=== PATIENT | female | born 2000 | race Caucasian/White ===

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

== ENCOUNTER 2022-05-02 15:51 | Emergency (ER) | payer BC, SELFPAY ==
[2022-05-02 15:57] VITALS: BP 111/74; PULSE 103; RESP 20; TEMP 37.1; O2SAT 98
--- NOTE | 2022-05-02 15:58 | ED.GENADULT ---
HPI - General Adult General Chief complaint: Skin/Abscess/Foreign Body Stated complaint: Hemorrhoid Time Seen by Provider: 05/02/22 15:58 Source: patient and RN notes reviewed History of Present Illness HPI narrative: Patient is a 22-year-old female who presents to urgent care with complaints of a possible hemorrhoid. Patient states that she noticed it a couple days ago after a firm bowel movement. Patient is denying any pain or bleeding. Just states that ?she can feel it there?. No other acute complaints. No acute distress noted. Patient aware of the plan of care. Some parts of this dictation were generated by voice recognition software and may contain typographical and/or grammatical inaccuracies. Related Data Home Medications Medication Instructions Recorded Confirmed metformin 500 mg tablet,extended 500 mg PO BID 05/02/22 05/02/22 release 24 hr Allergies Allergy/AdvReac Type Severity Reaction Status Date / Time No Known Allergies Allergy Verified 05/02/22 16:01 Review of Systems Review of Systems: CONSTITUTIONAL: Denies fever, chills, or sweats. EYES: Denies visual changes, redness, or discharge. ENT: Denies rhinorrhea, congestion, sore throat, or otalgia. CARDIOVASCULAR: Denies chest pain, palpitations, or edema. RESPIRATORY: Denies cough or dyspnea. GASTROINTESTINAL: Denies abdominal pain, nausea, vomiting, or diarrhea. Reports a possible hemorrhoid GENITOURINARY: Denies dysuria or hematuria. SKIN: Denies rash or itching. MUSCULOSKELETAL: Denies back pain, joint pain, or myalgia. NEUROLOGIC: Denies headache, numbness, or weakness. All other systems reviewed are negative, except as documented in HPI. PMFSH Comments At the time of my signature, I reviewed and agree with the nursing past medical, surgical, social, and family history. There is no relevant family history pertinent to the patient complaint. Exam Narrative: GENERAL: This is a well-nourished, well-developed patient, in no apparent distress. HEAD: normocephalic, atraumatic. EYES: PERRL. Sclera clear/white. Vision is grossly intact. EARS: External ears normal NOSE: External nose normal with no obvious nasal discharge, nares without redness, no rhinorrhea. THROAT: Mucous membranes moist NECK: Neck supple SKIN: warm, intact with no suspicious lesions or rash, good texture and turgor. RECTAL: Pinpoint erythema/scant edema noted to the anal injury at approximately 6:00, possible fissure without surrounding erythema, bleeding or pain NEURO: awake, alert, and oriented to person, place and time. There were no obvious focal neurologic abnormalities. EXTREMITIES: No clubbing, cyanosis, or edema. Course Course Level of Care: Express Care Visit Vital Signs Vital signs: Vital Signs Temperature 98.7 F 05/02/22 15:57 Pulse Rate 103 H 05/02/22 15:57 Respiratory Rate 20 05/02/22 15:57 Blood Pressure 111/74 05/02/22 15:57 Pulse Oximetry 98 05/02/22 15:57 Oxygen Delivery Room Air 05/02/22 15:57 Temperature 98.7 F 05/02/22 15:57 Pulse Rate 103 H 05/02/22 15:57 Respiratory Rate 20 05/02/22 15:57 Blood Pressure 111/74 05/02/22 15:57 Pulse Oximetry 98 05/02/22 15:57 Oxygen Delivery Room Air 05/02/22 15:57 Reviewed Medical Decision Making MDM Narrative Medical decision making narrative: Advised patient to keep the area clean. Use wipes after bowel movements. Try not to strain with bowel movements. It appears you may have either a slight fissure or a very minimal hemorrhoid to the anal entry. May use preparation H [id number] for discomfort. Use stool softener or MiraLax as needed for constipation. Follow-up with your PCP within 2-5 days or for worsening symptoms or failure to improve. Differential Diagnosis Differential Diagnosis: Internal hemorrhoid, external hemorrhoid, fissure Vital Signs Vital Signs: Vital Signs Temperature 98.7 F 05/02/22 15:57 Pulse Rate 103 H 05/02/22 15:57 Respir
== END 2022-05-02 16:40 | disposition home or self-care (01) ==
PROVIDERS: Emergency Provider Nurse Practitioner Family; PCP Family Medicine
DX: K62.89 Other specified diseases of anus and rectum (principal); E11.9 Type 2 diabetes mellitus without complications
CPT/HCPCS: 99211; G0463

== ENCOUNTER 2022-05-29 09:58 | Emergency (ER) | payer BC, SELFPAY ==
--- NOTE | ~2022-05-29 | XR_ITS ---
Clinical Indication: Cough PA and lateral views of the chest: Comparison: None Findings: The lungs are clear, without evidence of focal consolidation or pleural effusion. Cardiome diastinal silhouette is within normal limits. Bones and soft tissues are unremarkable. Impression: Normal chest. Reviewed, dictated and finalized at location . Impression: Normal chest.
[2022-05-29 10:04] VITALS: BP 103/69; PULSE 91; RESP 16; TEMP 36.8; O2SAT 98
--- NOTE | 2022-05-29 10:39 | ED.GENADULT ---
HPI - General Adult General Chief complaint: Upper Respiratory Infection Stated complaint: Cough/Congestion Source: patient Mode of arrival: ambulatory Limitations: no limitations History of Present Illness HPI narrative: Patient presents for evaluation of sick symptoms for last 4 days. Symptoms include low-grade fever, sore throat, bilateral otalgia, productive cough of yellow sputum, shortness of breath, body aches, nausea, and vomiting. Some other household members have been sick as of late. She had COVID in 2020. She does use an electronic cigarette and smokes marijuana. She has been taking tylenol and ibuprofen for her symptoms. Related Data Home Medications Medication Instructions Recorded Confirmed metformin 500 mg tablet,extended 500 mg PO BID 05/02/22 05/02/22 release 24 hr Allergies Allergy/AdvReac Type Severity Reaction Status Date / Time No Known Allergies Allergy Verified 05/02/22 16:01 Review of Systems Review of Systems: CONSTITUTIONAL: Reports low-grade fever. Denies chills, or sweats. EYES: Denies visual changes, redness, or discharge. ENT: Reports bilateral ear pain and otalgia. CARDIOVASCULAR: Denies chest pain, palpitations, or edema. RESPIRATORY: Reports productive cough of yellow sputum no shortness of breath. GASTROINTESTINAL: Reports nausea and vomiting. Denies diarrhea. GENITOURINARY: Denies dysuria or hematuria. SKIN: Denies rash or itching. MUSCULOSKELETAL: Reports generalized body aches. NEUROLOGIC: Denies headache, numbness, dizziness, or weakness. PSYCHIATRIC: Denies anxiety or depression. [facility] Past Medical History Medical History No pertinent past medical history Surgical History Surgical History History of tonsillectomy Family History Family History Mother Family history non-contributory Social History Social History Smoking status: Current every day smoker Tobacco type: e-cigarettes/vaping Substance use: current Substance use type: marijuana Living arrangements: with roommate(s) Gender identity (if verbalized by the patient): Female Spiritual care concerns: No Exam Narrative: GENERAL: Well-appearing, well-nourished, and in no acute distress. HEAD: Normocephalic, atraumatic. EYES: PERRLA and EOMI. ENT: Nares clear, no rhinorrhea or epistaxis. Mucous membranes moist. There is posterior pharyngeal erythema without exudate. Uvula is midline. Bilateral TMs pearly dyson nonbulging NECK: Supple. No adenopathy or masses. No carotid bruits or JVD CHEST: Cough present on exam. Clear to auscultation. No respiratory distress. No wheezes rales or rhonchi HEART: Regular rate and rhythm. No murmur heard. Normal peripheral pulses. ABDOMEN: Soft, nontender, nondistended, normal active bowel sounds. EXTREMITIES: Normal range of motion. No edema. SKIN: Warm, dry, no rash. NEURO: No focal deficits. Alert and oriented x3. PSYCH: Normal mood and affect. Course Course Emergency Course: THIS IS A 22-YEAR-OLD FEMALE WHO PRESENTED FOR EVALUATION OF SICK SYMPTOMS. COVID, INFLUENZA, STREP WERE ALL NEGATIVE. CHEST X-RAY NEGATIVE. EXAM IS CONSISTENT WITH VIRAL URI. ADVISED ON SUPPORTIVE MEASURES. [id number] AGENTS FOR SYMPTOM MANAGEMENT. INCREASE HYDRATION. FOLLOW UP WITH PRIMARY PROVIDER. GO TO THE ER FOR WORSENING SYMPTOMS. PATIENT IN AGREEMENT WITH PLAN OF CARE Level of Care: Express Care Visit Vital Signs Vital signs: Vital Signs Temperature 36.8 C 05/29/22 10:04 Pulse Rate 91 05/29/22 10:04 Respiratory Rate 16 05/29/22 10:04 Blood Pressure 103/69 05/29/22 10:04 Pulse Oximetry 98 05/29/22 10:04 Oxygen Delivery Room Air 05/29/22 10:04 Temperature 36.8 C 05/29/22 10:04 Pulse
== END 2022-05-29 11:29 | disposition home or self-care (01) ==
PROVIDERS: Emergency Provider Nurse Practitioner
DX: J06.9 Acute upper respiratory infection, unspecified (principal); Z20.822 Contact with and (suspected) exposure to COVID-19; F17.290 Nicotine dependence, other tobacco product, uncomplicated; F12.90 Cannabis use, unspecified, uncomplicated; Z86.16 Personal history of COVID-19
CPT/HCPCS: 71046; 87081; 87426; 87804; 87880; 99213; C9803; G0463

== ENCOUNTER 2022-06-02 13:17 | Emergency (ER) | payer BC, SELFPAY ==
[2022-06-02 13:26] VITALS: BP 110/71; PULSE 82; RESP 16; TEMP 36.8; O2SAT 99
--- NOTE | 2022-06-02 14:41 | ED.URI ---
HPI - URI/Sore Throat General Chief Complaint: Upper Respiratory Infection Stated Complaint: Left Ear Pain Time Seen by Provider: 06/02/22 14:41 Source: patient, RN notes reviewed and old records reviewed Mode of arrival: ambulatory Limitations: no limitations History of Present Illness HPI Narrative: 22-year-old female who presents to [facility] with complaints of cold symptoms starting about 1 week ago and this morning she developed left ear pain. Patient reports that she carty been taking Mucinex and also she has taken some Ibuprofen for her symptoms.Patient reports no fevers, chills or sweats or any body aches. MD elicited complaint: other (ear pain) Pertinent past history: other (tonsillectomy) Onset (ago): week(s) (1 week cold symptoms this am ear pain left ear) Pain scale (0-10): 9 Treatments prior to arrival: ibuprofen and other (Mucinex DM) Related Data Allergies Allergy/AdvReac Type Severity Reaction Status Date / Time No Known Allergies Allergy Verified 05/02/22 16:01 Review of Systems Review of Systems: CONSTITUTIONAL:Reports malaise, no chills, sweats, or fever. EYES: Denies visual changes, redness, or discharge. ENT: Reports rhinorrhea, congestion, sinus pain,left otalgia denies sore throat. CARDIOVASCULAR: Denies chest pain, palpitations, or edema. RESPIRATORY: Reports cough.? Denies dyspnea. GASTROINTESTINAL: Denies abdominal pain, nausea, vomiting, diarrhea SKIN: Denies rash or itching. MUSCULOSKELETAL: Denies myalgia. NEUROLOGIC: Denies headache. All systems reviewed & are unremarkable except as noted in HPI and below PMFSH Past Medical History Medical History (Updated 06/04/22 @ 14:42 by Melissa Pelayo NP) Anxiety Diabetes Surgical History Surgical History History of tonsillectomy Family History Family History Mother Family history non-contributory Social History Social History Smoking status: Current every day smoker Tobacco type: e-cigarettes/vaping Substance use: current Substance use type: marijuana Living arrangements: with roommate(s) Gender identity (if verbalized by the patient): Female Spiritual care concerns: No Comments At time of signature, agree with nursing past medical, surgical, social and family history. There is no relevant family history pertinent to the presenting complaint Exam Narrative: GENERAL: Well-appearing, well-nourished, and in no acute distress. HEAD: Normocephalic EYES: PERRLA, conjunctivae clear ENT: Nares clear, turbinates edematous and erythematous, clear discharge. Mucous membranes moist.Left TM red and bulging, right TM pearly dyson with dull light reflex; no tragal tenderness. Oropharynx erythematous without lesions. Tonsils not present and throat without exudate, no drooling, no hoarseness, no trismus, uvula midline.Post nasal drainage NECK: Supple. No lymphadenopathy CHEST: Clear to auscultation, breath sounds equal. No wheezing, rhonchi, rales, or stridor. No respiratory distress, speaks in full sentences.cough noted SAO2 99% on room air HEART: Regular rate and rhythm. No murmur heard. SKIN: Warm, dry, no rash. NEURO: Alert and oriented x3. PSYCH: Normal mood and affect Course Course Emergency Course: Patient is aware of diagnosis, understands and agrees to treatment plan.? Anticipatory guidance given.? Patient agrees to follow-up as directed and is aware of reasons to seek care at the emergency department. Portions of this record may have been created with voice recognition software Level of Care: Express Care Visit Vital Signs Vital signs: Vital Signs Temperature 36.8 C 06/02/22 13:26 Pulse Rate 82 06/02/22 13:26 Respiratory Rate 16 06/02/22 13:26 Blood Pressure 110/71 06/02/22 13:26 Pulse Oximetry
== END 2022-06-02 14:55 | disposition home or self-care (01) ==
PROVIDERS: Emergency Provider Registered Nurse
DX: H66.92 Otitis media, unspecified, left ear (principal); E11.9 Type 2 diabetes mellitus without complications; F41.9 Anxiety disorder, unspecified; F17.290 Nicotine dependence, other tobacco product, uncomplicated
CPT/HCPCS: 99213; G0463

== ENCOUNTER 2022-11-03 14:13 | Emergency (ER) | payer BC, SELFPAY ==
--- NOTE | ~2022-11-03 | XR_ITS ---
EXAMINATION: XR knee LT min 4V DATE: 11/03/2022 15:02 INDICATION: Left knee pain TECHNIQUE: Four views of the left knee were obtained. COMPARISON: None. FINDINGS: Alignment is normal. No fracture or osteochondral lesion. Joint spaces are normal with no e rosions. There is a small knee joint effusion. There is anterior and lateral soft tissue swelling of the knee. IMPRESSION: 1. Knee soft tissue swelling and small knee joint effusion without acute osseous abnormality. Reviewed, dictated and finalized at location F. IMPRESSION: 1. Knee soft tissue swelling and small knee joint effusion without acute osseou s abnormality.
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
[2022-11-03 14:21] VITALS: BP 131/70; PULSE 93; RESP 18; TEMP 36.6; O2SAT 100
== END 2022-11-03 15:35 | disposition home or self-care (01) ==
PROVIDERS: Emergency Provider Nurse Practitioner Family
DX: S60.512A Abrasion of left hand, initial encounter (principal); S60.511A Abrasion of right hand, initial encounter; S80.212A Abrasion, left knee, initial encounter; S80.211A Abrasion, right knee, initial encounter; V48.7XXA Person on outside of car injured in noncollision transport accident in traffic accident, initial encounter; M25.462 Effusion, left knee; E11.9 Type 2 diabetes mellitus without complications; F17.290 Nicotine dependence, other tobacco product, uncomplicated; F12.90 Cannabis use, unspecified, uncomplicated
CPT/HCPCS: 73564; 99213; G0463

== ENCOUNTER 2022-12-23 18:05 | Emergency (ER) | payer BC, SELFPAY ==
[2022-12-23 18:16] VITALS: BP 93/59; PULSE 107; RESP 16; TEMP 36.8; O2SAT 97
--- NOTE | 2022-12-23 18:27 | ECG_ITS ---
Measurements Intervals [place] Rate: 55 P: 59 OR: 128 QRS: 68 QRSD: 103 T: 47 QT: 405 QTc: 387 Interpretive Statements SINUS RHYTHM NONSPECIFIC T-WAVE ABNORMALITY INCOMPLETE RIGHT BUNDLE BRANCH BLOCK ABNORMAL ECG NO PREVIOUS ECG AVAILABLE FOR COMPARISON Electronically Signed On 12-24-2022 9:28:05 CDT by Anthony Tan M.D.
[2022-12-23 18:37] LABS: Glucose Point of Care 172 mg/dl (65-105)
[2022-12-23] MEDS: diphenhydrAMINE HCl CAP 25 MG CAPSULE PO (19:09)
[2022-12-23] MEDS: IBUPROFEN 600 MG TABLET PO (19:09)
--- NOTE | 2022-12-23 19:27 | ED.GENADULT ---
HPI - General Adult General Chief complaint: Headache Stated complaint: headache/fuzzy vision Source: patient Mode of arrival: ambulatory Limitations: no limitations History of Present Illness HPI narrative: Patient presents for evaluation of headache. Symptom onset 0655 this morning. She woke from sleep with her symptoms. She states pain was in the bilateral temporal regions with radiation to the occiput. She rates her pain 7/10 severity. She indicates she felt a fluttering of her heart and attempted to drink water to assist with her symptoms. She states her vision went black for about two minutes. Shortly thereafter she was driving to work and had some loss of peripheral vision bilaterally. She pulled over and contacted a friend who came to get her. She called off from work. She took a nap and woke up this afternoon, still with a headache. She has a history of headaches but this feels different. She reports high stress level related to family issues and finances. She denies any chest pain, shortness of breath, nausea, vomiting, lateralizing deficits. She took tylenol for her headache. She feels that she has a tremor at the present time. She has a hx of DM and is usually on metformin but has been off for some time as she does not have a primary provider. Related Data Allergies Allergy/AdvReac Type Severity Reaction Status Date / Time No Known Allergies Allergy Verified 12/23/22 18:24 Review of Systems Review of Systems: CONSTITUTIONAL: Denies fever, chills, or sweats. EYES: Reports visual changes earlier with some residual fuzzy changes ENT: Denies rhinorrhea, congestion, sore throat, or otalgia. CARDIOVASCULAR: Reports racing heart rate earlier, now resolved. Denies chest pain, palpitations, or edema. RESPIRATORY: Denies cough or dyspnea. GASTROINTESTINAL: Denies abdominal pain, nausea, vomiting, or diarrhea. GENITOURINARY: Denies dysuria or hematuria. SKIN: Denies rash or itching. MUSCULOSKELETAL: Denies back pain, joint pain, or myalgia. NEUROLOGIC: Reports tremor and headache. Denies headache, numbness, dizziness, or weakness. PSYCHIATRIC: Reports anxiety. Denies depression. [facility] Past Medical History Medical History Anxiety Diabetes Surgical History Surgical History History of tonsillectomy Family History Family History Mother Family history non-contributory Social History Social History Smoking status: Current every day smoker Tobacco type: e-cigarettes/vaping Substance use: current Substance use type: marijuana Living arrangements: with roommate(s) Gender identity (if verbalized by the patient): Female Spiritual care concerns: No Exam Narrative: GENERAL: Well-appearing, well-nourished, and in no acute distress. HEAD: Normocephalic, atraumatic. EYES: PERRLA and EOMI. ENT: Nares clear, no rhinorrhea or epistaxis. Mucous membranes moist. Oropharynx without tonsillar hypertrophy exudate or other lesions. Bilateral TMs pearly dyson nonbulging NECK: Supple. No adenopathy or masses. No carotid bruits or JVD CHEST: Clear to auscultation. No respiratory distress. No wheezes rales or rhonchi HEART: Regular rate and rhythm. No murmur heard. Normal peripheral pulses. ABDOMEN: Soft, nontender, nondistended, normal active bowel sounds. EXTREMITIES: Normal range of motion. No edema. SKIN: Warm, dry, no rash. NEURO: No focal deficits. Alert and oriented x3. Normal [id number] exam. Able to perform rapid alternating ear movements without difficulty. Comprehensive neurological exam intact. PSYCH: Normal mood and affect. Course Course Emergency Course: This is a 22-year-old female who presented for evaluation of headaches. She wa
== END 2022-12-23 19:59 | disposition home or self-care (01) ==
PROVIDERS: Emergency Provider Nurse Practitioner
DX: R51.9 Headache, unspecified (principal); F43.9 Reaction to severe stress, unspecified; E11.9 Type 2 diabetes mellitus without complications; F17.219 Nicotine dependence, cigarettes, with unspecified nicotine-induced disorders
CPT/HCPCS: 82948; 93005; 99213; A9270; G0463

== ENCOUNTER 2023-02-09 17:45 | Emergency (ER) | payer BC, SELFPAY ==
[2023-02-09 17:51] VITALS: BP 93/69; PULSE 75; RESP 18; TEMP 37; O2SAT 98
[2023-02-09 17:58] VITALS: BP 93/69; PULSE 75; RESP 18; TEMP 37; O2SAT 98
--- NOTE | 2023-02-09 18:08 | ED.URI ---
HPI - URI/Sore Throat General Chief Complaint: Upper Respiratory Infection Stated Complaint: Headache/Vomiting Source: patient and RN notes reviewed History of Present Illness HPI Narrative: 22 yo F presents to urgent care with complaints of an intermittent OG and sore throat x 4-5 days. Pt states her OG will change in location depending on the day and minute. Pt states she had a 101 F fever early this morning. Pt reports vomiting 4x within the last 24 hours. Denies any ear pain, chest pain, SOB, photophobia, abdominal pain, or diarrhea. Pt has taken OTC analgesics and soaked her feet in hot water without relief. Pt looking at her phone in exam room and in NAD. Related Data Allergies Allergy/AdvReac Type Severity Reaction Status Date / Time No Known Allergies Allergy Verified 02/09/23 17:58 Review of Systems Review of Systems: Pertinent positives and pertinent negatives per HPI. [facility] Past Medical History Medical History Anxiety Diabetes Surgical History Surgical History History of tonsillectomy Family History Family History Mother Family history non-contributory Social History Social History Smoking status: Current every day smoker Tobacco type: e-cigarettes/vaping Substance use: current Substance use type: marijuana Living arrangements: with roommate(s) Gender identity (if verbalized by the patient): Female Spiritual care concerns: No Comments At the time of my signature, I reviewed and agree with the nursing past medical, surgical, social, and family history. There is no relevant family history pertinent to the patient complaint. Exam Narrative: GENERAL: This is a well-nourished, well-developed patient, in no apparent distress. HEAD: normocephalic, atraumatic. EYES: Sclera clear/white. Vision is grossly intact. EARS: External ears normal, auditory canals clear and without drainage, TMs normal without perforation. Hearing grossly intact. NOSE: External nose normal with no obvious nasal discharge, nares without redness, no rhinorrhea. THROAT: Mucous membranes moist, posterior pharynx clear. NECK: Neck supple, non-tender without lymphadenopathy, masses or thyromegaly. CARDIOVASCULAR: Regular rate and rhythm without murmurs, gallops, or rubs. RESPIRATORY: Clear to auscultation. Breath sounds equal bilaterally. No wheezes, rales, or rhonchi. GASTROINTESTINAL: Abdomen soft, non-tender, nondistended. Bowel sounds are active. No hepato-splenomegaly, or palpable masses. No guarding. SKIN: warm, intact with no suspicious lesions or rash, good texture and turgor. NEURO: awake, alert, and oriented to person, place and time. There were no obvious focal neurologic abnormalities. EXTREMITIES: No clubbing, cyanosis, or edema. No joint tenderness, effusion, or edema noted. BACK: Nontender without deformity or crepitus. No flank tenderness. Course Course Level of Care: Express Care Visit Vital Signs Vital signs: Vital Signs Temperature 98.6 F 02/09/23 17:51 Pulse Rate 75 02/09/23 17:51 Respiratory Rate 18 02/09/23 17:51 Blood Pressure 93/69 L 02/09/23 17:51 Pulse Oximetry 98 02/09/23 17:51 Oxygen Delivery Room Air 02/09/23 17:51 Temperature 98.6 F 02/09/23 17:58 Pulse Rate 75 02/09/23 17:58 Respiratory Rate 18 02/09/23 17:58 Blood Pressure 93/69 L 02/09/23 17:58 Pulse Oximetry 98 02/09/23 17:58 Oxygen Delivery Room Air 02/09/23 17:58 Reviewed MDM - URI/Sore Throat Differential Diagnosis Differential diagnosis: Likely upper respiratory infection, otitis media, viral infection, pharyngitis and other (dehydration, migraine, AOM) Lab Data Labs: Strep Screen Presumptive Negative
== END 2023-02-09 18:36 | disposition home or self-care (01) ==
PROVIDERS: Emergency Provider Nurse Practitioner Family
DX: B34.9 Viral infection, unspecified (principal); E11.9 Type 2 diabetes mellitus without complications; F17.210 Nicotine dependence, cigarettes, uncomplicated
CPT/HCPCS: 87081; 87880; 99213; G0463

== ENCOUNTER 2024-07-26 11:17 | Emergency (ER) | payer BC, SELFPAY ==
--- OUTSIDE RECORDS SUMMARY | 2024-07-26 11:22 | XMS_ITS | Clinical Summary ---
Author Organization [facility] Address [address] [place] [address] Phone Care Team Providers Care Pot Feeder Name Role Phone Lise Blackwell SHIRT OPERATOR, COST MANAGER Primary Care Provider + Jimi Pitt MD Unavailable Allergies No known active allergies Medications Etonogestrel-Eth inyl Estradiol 0.12-0.015 MG/24HR RING 3 Active diphenhydrAMINE HCl (BENADRYL ALLERGY PO) Take by mouth. Active ondansetron (ZOFRAN-ODT) 4 MG TABLET DISPERSIBLE Take 1 Tablet by mouth every 8 hours as needed for Nausea - 1st line. 10 Tablet 4 Active polyethylene glycol (GLYCOLAX, MIRALAX) 17 g Pack Take 1 Packet by mouth daily. Dissolve in 4-8 oz of liquid. 90 Packet 4 Active ondansetron (ZOFRAN) 4 MG TabletIndication s:Nausea and vomiting, unspecified vomiting type Take 1 Tablet by mouth every 8 hours as needed for Nausea - 2nd line. 15 Tablet 5 Active metFORMIN (GLUCOPHAGE) 500 MG TabletIndication s:Diabetes 1.5, managed as type 2 (HCC) Take 1 Tablet by mouth 2 times daily. 180 Tablet 5 Active tamsulosin (FLOMAX) 0.4 MG Capsule TAKE 1 CAPSULE BY MOUTH DAILY 7 Capsule 5 Active Active Problems No known active problems Encounters Date Type Department Care Team Description 07/22/2024 10:58 AM CDT - 07/22/2024 1:09 PM CDT [facility] Emergency [address] [place] [address] Charlene Clark APRN, COST MANAGER Upper respiratory tract infection, unspecified type Discharge Disposition: Discharged to home or Selfcare 07/22/2024 Travel 07/22/2024 [facility] [address] [place] [address] Lise Blackwell, SHIRT OPERATOR, COST MANAGER Advice Only; Headache; Sore Throat; Fever 07/02/2024 12:26 PM CDT [facility] Per[facility] [address] [place] [address] Adelso Eden APRN, FINANCIAL OPERATIONS CONSULTANT 07/02/2024 12:10 PM CDT - 07/02/2024 1:40 PM CDT [facility] Per[facility] [address] [place] [address] Jimi Pitt MD RIGHT RENAL EXTRACORPOREAL SHOCKWAVE LITHOTRIPSY 07/02/2024 10:07 AM CDT - 07/02/2024 2:56 PM CDT [facility] Preop[facility]Pac[facility] [address] [place] [address] Jimi Pitt MD Discharge Disposition: Discharged to home or Selfcare 07/02/2024 Travel 06/24/2024 Travel 06/23/[address] [facility] [address] [place] [address] Jimi Pitt MD 06/23/[address] [facility] [address] [place] [address] Jimi Pitt MD 06/22/2024 Results Follow-Up [facility] - Family Medicine [facility] [address] [place] [address] Lise Blackwell APRN, COST MANAGER CMP (COMPREHENSIVE METABOLIC PANEL), HEMOGLOBIN A1C W/ ESTIMATED GLUCOSE, CBC WITH AUTO DIFFERENTIAL, THYROID SCREEN WITH REFLEX 06/18/2024 12:21 PM CDT - 06/18/2024 11:59 PM CDT [facility] Diagnostic Radiology [address] [place] [address] Jimi Pitt MD Discharge Disposition: Discharged to home or Selfcare 06/18/2024 11:15 AM CDT Office Visit [facility] [address] [place] [address] Jimi Pitt MD Kidney stone (Primary Dx) Discharge Disposition: Discharged to home or Selfcare 06/18/2024 Travel 06/12/2024 Refill [facility] [address] [place] [address] Taco Cox MD Medication Refill 05/25/2024 9:00 AM CDT Office Visit [facility] [address] [place] [address] Lise Blackwell APRN, JAMES Diabetes 1.5, managed as type 2 (HCC) (Primary Dx); Nephrolithiasis Discharge Disposition: Discharged to home or Selfcare 05/25/2024 Travel 05/05/2024 Results Follow-Up [facility] [address]2 [facility] [place] [address] Lise Blackwell, MARIA G, COST MANAGER HEMOGLOBIN A1C W/ ESTIMATED GLUCOSE, CMP (COMPREHENSIVE METABOLIC PANEL), LIPID PANEL, Additional followed-up results: 2 05/04/2024 9:48 AM STONEWORKING BELT SANDER - 05/04/2024 11:59 PM STONEWORKING BELT SANDER [facility] CT [address] [place] [address] Oscar Herrera APRN, COST MANAGER Discharge Disposition: Discharged to home or Selfcare 05/04/2024 9:15 AM STONEWORKING BELT SANDER Office Visit [facility] [address] [place] [address] Oscar Herrera APRN, CNP Nephrolithiasis (Primary Dx) Discharge Disposition: Discharged to home or Selfcare 05/04/2024 Results Follow-Up [facility] [address] [place] [address] Oscar Herrera APRN, CNP CT RENAL STONE STUDY (ABDOMEN AND PELVIS W/O CONTRAST) 05/04/2024 Travel 05/03/2024 Nurse Triage [facility] [address] [place] [phone] Lise Blackwell APRN, CNP Abdominal Pain; Kidney Stone 04/28/2024 Results Follow-Up [facility] [address] [place] [address] ABDOMEN PELVIS W/ CONTRAST from Last 3 Months Immunizations Immunization Administration Dates Next Due [id number] kath MCV4, Unspecif ied Formulation 10/31/2007 DTAP VACCINE 06/21/2003, 3,2002,05/29 DTAP/HEPB/IPV Vaccine 10/31/2007 HEP B/HIB Combined Vaccine 03/24/2003,2002 ,2002 Hepatitis A Vaccine, Pediatric/adolescent, 2 Dose Schedule 11/19/2012 Hepatitis A Vaccine,unspecif ied Formulation 12/29/2007,10/31/2007 Hepatitis A, Pediatric, Unsp ecified Formulation 10/31/2007 Hepatitis B Vaccine,unspecif ied Formulation 10/31/2007,03/24/2003,2002,05/29 Human Papillomavirus (HPV) 9 -valent Vaccine 12/14/2015 Human Papillomavirus Vaccine (HPV), quadrivalent 04/22/2015 Inactivated Polio Vaccine 03/24/2003,2002, 2002 Influenza Vaccine 01/29/2011 Influenza Vaccine Quadrivalent Nasal 01/04/2014, 01/09/2013 Influenza Vaccine greater than 3 yrs 11/25/2023 Influenza Vaccine, Quadrivalent, PF 03/22/2023,0 04/26/2017,12/14/2015 Influenza Vaccine,unspecifie d Formulation 01/01/2003 Influenza, Injectable, Mdck, Preservative Free 03/26/2024 Influenza,Split Virus,Trivalent,Injectable,PF 11/25/2023 MMR Vaccine 11/19/2012,06/21/2003 Meningococcal B, Recombinant 09/10/2019 Meningococcal Vaccine 09/10/2019,05/25/2014,0 07/2003 Pneumococcal Vaccine Peds - 7 Valent ,2002,2002,05/29 TDAP Vaccine 05/25/2014 Varicella Vaccine Live 04/26/2017,10/31/2007,09/2003 Family History Medical History Relation Name Comments Autism Brother Alcohol Abuse Father Drug Abuse Father Alcohol Abuse Maternal Grandfather Heart Attack Maternal Grandfather Heart Surgery Maternal Grandfather Colon Cancer Maternal Grandmother Lung Cancer Maternal Grandmother Other-comment Maternal Grandmother Brain tumor ADD / ADHD Mother Anxiety disorder Mother Bipolar Disorder Mother Depression Mother Chronic Obstructive Pulmonary Disease Paternal Grandmo ther Anxiety disorder Sister Bipolar Disorder Sister Depression Sister Relation Name Status Comments Brother Alive Father Maternal Grandfather Alive Maternal Grandmother Mother Paternal Grandmother Alive Sister Alive Social History Tobacco Use Types Packs/Day Years Used Date Smoking Tobacco: Never Smokeless Tobacco: Never Tobacco Cessation:Counseling Given: Not Answered Alcohol Use Standard Drinks/Week Comments Yes 0 (1 standard drink = 0.6 oz pur e alcohol) Rare [facility] Utilities Answer Date Recorded In the past 12 months has [employer], gas, oil, or water [employer] threatened to shut off services in your home? No 10/02/2023 Social Connection and Isolation Panel [NHANES] A nswer Date Recorded In a typical week, how many times do you talk on the phone with family, friends, or neighbors? Twice a week 10/02/2023 How often do you get together with friends or re latives? Once a week 10/02/2023 How often do you attend jehovah's witness or restorationist serv ices? Never 10/02/2023 Do you belong to any clubs o r organizations such as jehovah's witness groups, unions, fraternal or athletic groups, or school groups? No 10/02/2023 How often do you attend meet ings of the clubs or organizations you belong to? Never 10/02/2023 Are you , , di vorced, , never , or living with a partner? Never 10/02/2023 AUDIT-C Answer Date Recorded Q1: How often do you have a drink containing alc ohol? 2-4 times a month 10/02/2023 Q2: How many drinks containi ng alcohol do you have on a typical day when you are drinking? 3 or 4 10/02/2023 Q3: How often do you have si x or more drinks on one occasion? Never 10/02/2023 Overall Financial Resource Strain (CARDIA) Answe r Date Recorded How hard is it for you to pa y for the very basics like food, housing, medical care, and heating? Somewhat hard 10/02/2023 PHQ-2 Answer Date Recorded Total Score - Questions 1-9 0 02/0 08/2024 [facility] - Occupational Stress Questionnaire Answer Date Recorded Do you feel stress - tense, restless, nervous, or anxious, or unable to sleep at night because your mind is troubled all the time - these days? To some extent 10/02/2023 Exercise Vital Sign Answer Date Recorde d On average, how many days pe r week do you engage in moderate to strenuous exercise (like a brisk walk)? 4 days 10/02/2023 On average, how many minutes do you engage in exercise at this level? 60 min 10/02/2023 Hunger Vital Sign Answer Date Recorded Within the past 12 months, y ou worried that your food would run out before you got the money to buy more. Never true 10/02/19 24 Within the past 12 months, t he food you bought just didn't last and you didn't have money to get more. Never true 10/02/2023 PRAPARE - Transportation Answer Date Re corded In the past 12 months, has l ack of transportation kept you from medical appointments or from getting medications? No 09/15 In the past 12 months, has l ack of transportation kept you from meetings, work, or from getting things needed for daily living? No 10/02/2023 Housing Stability Vital Sign Answer Ulices e Recorded In the last 12 months, was t here a time when you were not able to pay the mortgage or rent on time? No 10/02/2023 In the past 12 months, how m any times have you moved where you were living? 0 10/02/2023 At any time in the past 12 m [facility], were you homeless or living in a correction (including now)? No 10/02/2023 Sexually Active Control Partners Comments Yes Male Condom, Inserts Female NUVA RI NG Comments No Sex and Gender Information Value Date Recorded Sex Assigned at Female 10/31/2023 5:22 PM CDT Legal Sex Female 1:28 PM CDT Gender Identity Female 10/31/2023 5:22 PM CDT Sexual Orientation Straight 12/23/2023 7: 01 PM CDT Last Filed Vital Signs Vital Sign Reading Time Taken Comments Blood Pressure 107/63 07/22/2024 1:07 PM CDT Pulse 91 07/22/2024 1:07 PM CDT Temperature 37.2 C (99 F) 07/22/2024 10:56 AM CDT Respiratory Rate 18 07/22/2024 1:07 PM CDT Oxygen Saturation 99% 07/22/2024 1:07 PM CDT Inhaled Oxygen Concentration - - Weight 57.9 kg (127 lb 10.3 oz) 025 10:56 AM CDT Height 152.4 cm (5') 07/22/2024 10:56 AM CDT Body Mass Index 24.93 07/22/2024 10:56 AM CDT Plan of Treatment Upcoming Encounters Date Type Department Care Team (Late st Contact Info) Description 08/06/2024 9:45 AM CDT Office Visit [facility] [address] [place] [address] Jimi Pitt MD [address], [address] [address] 11/25/2024 8:30 AM CDT Office Visit [facility] - [place] [address] [place] [address] Lise Blackwell, SHIRT OPERATOR, COST MANAGER [address] [place] [address] Health Maintenance Due Date Last Done Comments Meningococcal B Immunization (2 of 2 - Trumenba SCDM 2-dose series) 03/11/2020 09/10/2019 Pneumococcal Immunization Combined (1 of 2 - PCV) 2021 10/31/2007, 2002, 2002, Additional history exists Pap Smear 2023 SARS-COV-2 Immunization (1 - season) 2023 DTaP/Tdap/Td Immunization (7 - Td or Tdap) 05/25/2024 05/25/2014, 10/31/2007, 06/21/2003, Additional history exists Respiratory Syncytial Virus (RSV) Immunization (Adult) (1 - 1-dose 75+ series) 2077 Hepatitis B Immunization Completed 008, 10/31/2007, 03/24/2003, Additional history exists Human Papillomavirus (HPV) Immunization Completed 12/14/2015, 04/22/2015 Meningococcal Immunization (ACWY) Completed 09/10/2019, 05/25/2014, 10/31/2007, Additional history exists Hepatitis C Virus (HCV) Screening Completed 07/22/2023 Influenza Immunization Completed , 11/25/2023, 11/25/2023, Additional history exists Diabetes: Lipid Screening Discontinued 04/23/2024, 12/2023 Diabetes: Hemoglobin A1c Discontinued 025, 04/23/2024, 07/22/2023, Additional history exists Diabetes: Nephropathy Screening Discontinued 06/18/2024, 04/23/2024, 01/15/2024, Additional history exists Diabetes: Thyroid Stimulating Hormone (TSH) Screening Discontinued 06/18/2024, 06/18/2024, 04/23/2024, Additional history exists Rotavirus Immunization Aged Out No lo nger eligible based on patient's age to complete this topic Procedures Procedure Name Priority Date/Time Associated Diagnosis Comments GROUP A STREP BY PCR STAT 07/22/2024 11:10 AM CDT RSV,SARS-COV-2,INF LUENZA A&B BY PCR STAT 07/22/2024 11:10 AM CDT POCT GLUCOSE Routine 07/02/2024 1:21 PM CDT LMA Routine 07/02/2024 12:58 PM CDT FRAGMENT KIDNEY STONE/ ESWL 07/02/2024 12:06 PM CDT RIGHT KIDNEY STONE Special Needs 5' 122LBS, DM, NEEDS PREG TEST IN DS, KUB IN DS XR ABDOMEN KUB FLAT PLATE STAT 07/02/2024 11:02 AM CDT POCT GLUCOSE Routine 07/02/2024 10:46 AM CDT POCT URINE HCG () Routine 07/02/2024 10:21 AM CDT XR ABDOMEN KUB FLAT PLATE Routine 06/18/2024 12:41 PM CDT Kidney stone THYROID SCREEN WITH REFLEX Routine 06/18/2024 11:50 AM CDT Diabetes 1.5, managed as type 2 (HCC) CBC WITH AUTO DIFFERENTIAL Routine 06/18/2024 11:50 AM CDT Diabetes 1.5, managed as type 2 (HCC) THYROID SCREEN WITH REFLEX Routine 06/18/2024 11:50 AM CDT Diabetes 1.5, managed as type 2 (HCC) HEMOGLOBIN A1C W/ ESTIMATED GLUCOSE Routine 06/18/2024 11:50 AM CDT Diabetes 1.5, managed as type 2 (HCC) COMPLETE BLOOD COUNT (CBC) WITH DIFF Routine 06/18/2024 11:50 AM CDT Diabetes 1.5, managed as type 2 (HCC) CMP (COMPREHENSIVE METABOLIC PANEL) Routine 06/18/2024 11:50 AM CDT Diabetes 1.5, managed as type 2 (HCC) POCT UA AUTOMATED W/O MICRO Routine 06/18/2024 11:23 AM CDT [address] stone [address] RENAL STONE STUDY (ABDOMEN AND PELVIS W/O CONTRAST) Stat with Interpretation 05/04/2024 10:06 AM STONEWORKING BELT SANDER Nephrolithiasis LIPID PANEL Routine 04/23/2024 11:58 AM STONEWORKING BELT SANDER Diabetes 1.5, managed as type 2 (HCC) HEPATITIS C ANTIBODY Routine 07/22/2023 11:06 AM CDT Need for hepatitis C screening test from Last 3 Months or Most Recently Relevant to Health Maintenance Results * GROUP A STREP BY PCR (07/22/2024 11:10 AM CDT) Pathologist [facility] GROUP A STREP BY PCR NOT DETECTED NOT DETECTED 07/22/2024 11:55 AM CDT [facility] Swab STRUCTURE OF ANTERIOR PORTION OF NECK / Unknown Non-Phlebotomy Collection / Unknown 07/22/2024 11:10 AM CDT 07/22/2024 11:27 AM CDT us Charlene Clark APRN, COST MANAGER MICROBIOLOGY - GEN ERAL ORDERABLES Final Result [facility] [address] [place] [address] * RAS-COV-2 Flu RSV - (Quad PCR) (07/22/2024 11:10 AM CDT) Pathologist [facility] FLU A Negative Negative, Error 07/22/2024 12:28 PM CDT [facility] FLU B Negative Negative 07/22/2024 12:28 PM CDT [facility] RESP SYNC VIRUS Negative Negative 12:28 PM CDT [facility] SARSCOV2 NOT DETECTED (Reference Range for this test is Not Detected) 07/22/2024 12:28 PM CDT [facility] Comment:This test was perfor med by a Reverse Clam Dredger PCR Method. Swab NASOPHARYNGEAL SWAB / Unknown Non-Phlebotomy Collection / Unknown 07/22/2024 11:10 AM CDT 07/22/2024 11:20 AM CDT us Charlene Clark APRN, COST MANAGER MICROBIOLOGY - GEN ERAL ORDERABLES Final Result Performing Organization Address City/[facility]/ZIP Co de Phone Number [facility] [address] [place] [address] * POCT Glucose (07/02/2024 1:21 PM CDT) Only the most recent of2 resultswithin the time period is included. GLUCOSE,BEDSIDE POCT 97 70 - 99 mg/dL 07/02/2024 1:27 PM CDT [facility] Blood 07/02/2024 1:21 PM CDT 07/02/2024 1:27 PM CDT us None Provider POINT OF CARE TESTING Final Resu lt Performing Organization Address City/[facility]/ZIP Co de Phone Number [facility] [address] [place] [address] * LMA (07/02/2024 12:58 PM CDT) Narrative Adelso Eden APRN, CRNA - 07/02/2024 12:58 PM CDT Adelso Eden APRN, CRNA 07/02/2024 12:58 PM LMA Staffing Performed: resident/FINANCIAL OPERATIONS CONSULTANT Resident/FINANCIAL OPERATIONS CONSULTANT: Adelso Eden APRN, CRNA Other anesthesia staff: Cristiana Mix Performed by: Adelso Eden APRN, CRNA Authorized by: Adelso Eden APRN, CRNA Airway Details Overall Difficulty: Easy Preoxygenated: Yes Ease of Mask Ventilation: Easy LMA Type: Disposable LMA Size: 3 Adequate seal established: Yes LMA placement confirmed by: bilateral breath sounds, CO2 detection Atraumatic LMA Placement us Adelso Eden APRN, FINANCIAL OPERATIONS CONSULTANT ANESTHESIA ORDERAB LES Final Result * XR ABDOMEN KUB FLAT PLATE (07/02/2024 11:02 AM CDT) Only the most recent of2 resultswithin the time period is included. Anatomical Region Laterality Modality Abdomen N/A Digital Radiogra phy 07/02/2024 12:5 3 PM CDT Impressions 07/02/2024 12:55 PM CDT IMPRESSION: Previous right flank calcification is not clearly visualized. The region is obscured by bowel gas. Narrative 07/02/2024 12:55 PM CDT EXAM DESCRIPTION: XR ABDOMEN KUB FLAT PLATE REASON FOR STUDY: to confirm stone is present pre-op. prior kub 06/18/24. TECHNIQUE: Supine view COMPARISON: 06/18/2024 FINDINGS: Right flank is obscured by bowel gas. Previous calcification is not clearly visualized. Left flank also obscured by bowel gas with no unusual calcifications identified. Calcification over the left bony pelvis is unchanged suggesting small phleboliths. Bowel gas pattern is unremarkable. Moderate stool burden. No acute bony defects. THIS IS AN ELECTRONICALLY VERIFIED FINAL REPORT 07/02/2024 12:53 PM - Electronically signed by En Mendiola M.D. RB: SISSY Report ID: [id number] Reading Location: [id number] Procedure Note En Mendiola MD - 07/02/2024 EXAM DESCRIPTION: XR ABDOMEN KUB FLAT PLATE REASON FOR STUDY: to confirm stone is present pre-op. prior kub 06/18/24. TECHNIQUE: Supine view COMPARISON: 06/18/2024 FINDINGS: Right flank is obscured by bowel gas. Previous calcification is not clearly visualized. Left flank also obscured by bowel gas with no unusual calcifications identified. Calcification over the left bony pelvis is unchanged suggesting small phleboliths. Bowel gas pattern is unremarkable. Moderate stool burden. No acute bony defects. THIS IS AN ELECTRONICALLY VERIFIED FINAL REPORT 07/02/2024 12:53 PM - Electronically signed by En Mendiola M.D. RB: SISSY Report ID: [id number] Reading Location: [id number] IMPRESSION: Previous right flank calcification is not clearly visualized. The region is obscured by bowel gas. Jimi Pitt MD IMG DIAGNOSTIC ORDERABLES Final Result * POCT Urine HCG () (07/02/2024 10:21 AM CDT) Pathologist [facility] POC URINE Negative POC URINE CONTROL Neurology Professor Pass Urine 07/02/2024 10:2 1 AM CDT us Jimi Pitt MD POINT OF CARE TESTING (MANUAL) F inal Result * THYROID SCREEN WITH REFLEX (06/18/2024 11:50 AM CDT) Pathologist [facility] TSH 1.435 0.300 - 5.000 mIU/L 06/18/2024 1:00 PM CDT [facility] Blood Venipuncture / Unknown 06/18/2024 11:50 AM CDT 06/18/2024 12:18 PM CDT Lise Blackwell SHIRT OPERATOR, COST MANAGER CHEMISTRY ORDERABLES Fin al Result [facility] [place] [address] * HEMOGLOBIN A1C W/ ESTIMATED GLUCOSE (06/18/2024 11:50 AM CDT) Pathologist [facility] HGB-A1C 5.8 4.0 - 6.0 % 06/18/2024 1:46 PM CDT [facility] Est Average Glucose 119.8 mg/dL 06/18/2024 1:46 PM CDT [facility] Blood Venipuncture / Unknown 06/18/2024 11:50 AM CDT 06/18/2024 12:19 PM CDT Narrative [facility] - 06/18/2024 1:46 PM CDT HEMOGLOBIN A1C: DIABETIC PATIENTS: WELL-CONTROLLED: 6.2 - 7.0 INTERMEDIATE WELL-CONTROLLED: 7.0 - 9.0 POORLY-CONTROLLED: >9.0 Specimens containing greater than 5% of Hemoglobin F may result in lower than expected % HbA1C results. us Lise Blackwell SHIRT OPERATOR, COST MANAGER CHEMISTRY ORDERABLES Fin al Result [facility] [address] [place] [address] * (ABNORMAL) CBC WITH AUTO DIFFERENTIAL (06/18/2024 11:50 AM CDT) WBC 5.53 4.00 - 12.00 10(3)/mcL 06/18/2024 12:23 PM CDT [facility] RBC 3.98 3.80 - 5.30 10(6)/mcL 06/18/2024 12:23 PM CDT [facility] HEMOGLOBIN (HGB) 12.3 12.0 - 15.8 g/dL 06/18/2024 12:23 PM CDT [facility] HEMATOCRIT (HCT) 37.1 36.0 - 47.0 % 06/18/2024 12:23 PM CDT [facility] MCV 93.2 82.0 - 96.0 fL 06/18/2024 12:23 PM CDT [facility] MCH 30.9 26.0 - 34.0 pg 06/18/2024 12:23 PM CDT [facility] MCHC 33.2 31.0 - 36.0 g/dL 06/18/2024 12:23 PM CDT [facility] PLATELET COUNT 208 140 - 440 10(3)/mcL 06/18/2024 12:23 PM CDT [facility] RDW 11.9 11.8 - 15.5 % 06/18/2024 12:23 PM CDT [facility] MPV 8.4(L) 9.7 - 12.4 fL 06/18/2024 12:23 PM CDT [facility] NEUTROPHILS 59.4 47.0 - 73.0 % 06/18/2024 12:23 PM CDT [facility] LYMPHOCYTES 34.5 18.0 - 42.0 % 06/18/2024 12:23 PM CDT [facility] MONOCYTES 5.2 4.0 - 12.0 % 06/18/2024 12:23 PM CDT [facility] EOSINOPHILS 0.5 0.0 - 5.0 % 06/18/2024 12:23 PM CDT [facility] BASOPHILS 0.4 0.0 - 1.0 % 06/18/2024 12:23 PM CDT [facility] ABSOLUTE NEUTROPHILS 3.28 1.60 - 7.70 10(3)/mcL 06/18/2024 12:23 PM CDT [facility] ABSOLUTE LYMPHOCYTES 1.91 1.30 - 3.20 10(3)/mcL 06/18/2024 12:23 PM CDT [facility] ABSOLUTE MONOCYTES 0.29 0.20 - 1.00 10(3)/mcL 06/18/2024 12:23 PM CDT [facility] ABSOLUTE EOSINOPHIL 0.03 0.00 - 0.40 10(3)/mcL 06/18/2024 12:23 PM CDT [facility] ABSOLUTE BASOPHILS 0.02 0.00 - 0.10 10(3)/mcL 06/18/2024 12:23 PM CDT [facility] NRBC PER 100 WBC 0 06/19/19 12:23 PM CDT [facility] Blood Venipuncture / Unknown 06/18/2024 11:50 AM CDT 06/18/2024 12:19 PM CDT us Lise Blackwell SHIRT OPERATOR, COST MANAGER HEMATOLOGY ORDERABLES Fi nal Result [facility] [address] [place] [address] * (ABNORMAL) CMP (COMPREHENSIVE METABOLIC PANEL) (06/18/2024 11:50 AM CDT) SODIUM 139 136 - 145 mmol/L 06/18/2024 12:52 PM CDT [facility] POTASSIUM 4.0 3.5 - 5.1 mmol/L 06/18/2024 12:52 PM CDT [facility] CHLORIDE 108(H) 98 - 107 mmol/L 06/18/2024 12:52 PM CDT [facility] CO2, VENOUS 26 22 - 30 mmol/L 06/18/2024 12:52 PM CDT [facility] ANION GAP 9.0 <18.0 mmol/L 06/18/2024 12:52 PM CDT [facility] GLUCOSE 106(H) 70 - 99 mg/dL 06/18/2024 12:52 PM CDT [facility] BUN 12 5 - 18 mg/dL 06/18/2024 12:52 PM CDT [facility] CREATININE, BLOOD 0.75 0.60 - 1.00 mg/dL 06/18/2024 12:52 PM CDT [facility] BUN/CREATININE RATIO 16 12 - 20 ratio 06/18/2024 12:52 PM CDT [facility] TOTAL PROTEIN 6.7 6.0 - 8.0 g/dL 06/18/2024 12:52 PM CDT [facility] ALBUMIN 3.9 3.5 - 5.0 g/dL 06/18/2024 12:52 PM CDT [facility] A/G RATIO 1.4 1.0 - 2.2 06/18/2024 12:52 PM CDT [facility] CALCIUM 8.5(L) 8.7 - 10.5 mg/dL 06/18/2024 12:52 PM CDT [facility] T BILI 0.5 0.2 - 1.2 mg/dL 06/18/2024 12:52 PM CDT [facility] SGOT (AST) 21 <43 U/L 06/18/2024 12:52 PM CDT [facility] SGPT (ALT) 13 <56 U/L 06/18/2024 12:52 PM CDT [facility] ALKALINE PHOSPHATASE 54 40 - 150 U/L 06/18/2024 12:52 PM CDT [facility] IS THE PATIENT REQUIRED TO BE FASTING? No 06/18/2024 12:52 PM CDT [facility] GFR, ESTIMATED >60 >=60 06/18/2024 12:52 PM CDT [facility] Comment: Creatinine Clearance is the preferred criteria for selecting drug dose adjustments in renally impaired patients. The GFR is provided as additional pertinent clinical information. GFR is reported in mL/min/1.73 sq m. Calculation based on the Chronic Kidney Disease Epidemiology Collaboration (CKD- EPI) equation refit without adjustment for race. GFR, EST. >60 >=60 025 12:52 PM CDT [facility] GFR, EST. NONAFRICAN >60 >=60 06/18/2024 12:52 PM CDT [facility] Blood Venipuncture / Unknown 06/18/2024 11:50 AM CDT 06/18/2024 12:18 PM CDT us Lise Blackwell SHIRT OPERATOR, COST MANAGER CHEMISTRY ORDERABLES Fin al Result [facility] [address] [place] [address] * (ABNORMAL) POCT UA AUTOMATED W/O MICRO (06/18/2024 11:23 AM CDT) POC UA SPECIFIC GRAVITY 1.010 URINE PH 7.0 5.0 - 9.0 POC URINE LEUKOCYTES 500 /uL(A) Negative [place]/uL POC URINE NITRITE Negative Negative POC URINE PROTEIN Trace(A) Negative mg/dL POC URINE GLUCOSE Norm Negative, Norm mg/dL POC URINE KETONE Negative Negative mg/dL POC URINE UROBILINOGEN Norm Norm, 0.2 E.U./dL (mg/dL), 1 E.U./dL (mg/dL) POC URINE BILIRUBIN Negative Negative mg/dL POC URINE BLOOD INSTRUMENT Negative Negative Audi/uL POC URINE COLOR Yellow POC URINE CLARITY Hazy Urine 06/18/2024 11:2 3 AM CDT Jimi Pitt MD POINT OF CARE TESTING (MANUAL) F inal Result * CT RENAL STONE STUDY (ABDOMEN AND PELVIS W/O CONTRAST) (05/04/2024 10:06 AM STONEWORKING BELT SANDER) Anatomical Region Laterality Modality Abdomen N/A Computed Tomogra phy 05/04/2024 10:4 9 AM STONEWORKING BELT SANDER Impressions 05/04/2024 10:51 AM STONEWORKING BELT SANDER IMPRESSION: 1. Nonobstructing right renal calculi measuring up to 5 mm. No hydronephrosis or hydroureter. 2. Appendix is not definitively identified due to lack of IV or oral contrast and minimal intra-abdominal fat. No obvious inflammatory changes in the right lower quadrant. Recommend clinical correlation. Narrative 05/04/2024 10:51 AM STONEWORKING BELT SANDER EXAM DESCRIPTION: CT RENAL STONE STUDY (ABDOMEN AND PELVIS W/O CONTRAST) REASON FOR STUDY: prio CT abd/pelv w on 04/23/24 noted nonobstructing RT renal calculi. c/o RLQ pain radiating into back x 2 [address] TECHNIQUE: CT scan of the abdomen and pelvis performed without intravenous and without oral contrast using helical scanning technique. Reconstructed coronal and sagittal MPR images reviewed. All images stored on PACS. Automated exposure control was used as a dose optimization technique for this examination. COMPARISON: CT abdomen pelvis 04/23/2024 FINDINGS: The sensitivity for detection of visceral lesions is diminished without the use of intravenous contrast. LOWER CHEST: No significant pulmonary abnormalities. No effusion. LIVER: There is focal fatty infiltration of the liver near the falciform ligament. GALLBLADDER: No stones identified. No wall thickening or inflammatory changes. BILE DUCTS: No intrahepatic or extrahepatic ductal dilatation. SPLEEN: Normal size. No focal lesions. PANCREAS: No identified cystic or solid masses. No significant calcifications. No adjacent inflammation or peripancreatic fluid collections. Pancreatic duct not dilated. ADRENALS: Normal. KIDNEYS/URINARY TRACT: There is a 5 mm calculus in the interpolar region of the right kidney and a few punctate 1-2 mm calculi in the lower pole. There is no hydronephrosis or hydroureter. The ureters are difficult to completely trace to the urinary bladder, however no obvious calcifications are seen along the expected course of the ureters. Urinary bladder is mostly decompressed and not well evaluated. GI: Stomach is decompressed. No dilated or thick-walled loops of bowel appreciated. The appendix is difficult to trace due to lack of IV or oral contrast and minimal intra-abdominal fat. No obvious inflammatory changes in the right lower quadrant. There is no significant diverticular disease. PERITONEUM: No ascites or free air. RETROPERITONEUM: No mass or adenopathy. REPRODUCTIVE: No significant abnormality. There appears to be a tampon within the vagina. VASCULATURE: No abdominal aortic aneurysm. MUSCULOSKELETAL: No significant abnormality. OTHER: There is a tiny fat containing umbilical hernia. THIS IS AN ELECTRONICALLY VERIFIED FINAL REPORT 05/04/2024 10:49 AM - Electronically signed by Enoc Leiva M.D. AM: AM Report ID: [id number] Reading Location: [id number] Procedure Note Enoc Leiva MD - 05/04/2024 EXAM DESCRIPTION: CT RENAL STONE STUDY (ABDOMEN AND PELVIS W/O CONTRAST) REASON FOR STUDY: prio CT abd/pelv w on 04/23/24 noted nonobstructing RT renal calculi. c/o RLQ pain radiating into back x 2 [address] TECHNIQUE: CT scan of the abdomen and pelvis performed without intravenous and without oral contrast using helical scanning technique. Reconstructed coronal and sagittal MPR images reviewed. All images stored on PACS. Automated exposure control was used as a dose optimization technique for this examination. COMPARISON: CT abdomen pelvis 04/23/2024 FINDINGS: The sensitivity for detection of visceral lesions is diminished without the use of intravenous contrast. LOWER CHEST: No significant pulmonary abnormalities. No effusion. LIVER: There is focal fatty infiltration of the liver near the falciform ligament. GALLBLADDER: No stones identified. No wall thickening or inflammatory changes. BILE DUCTS: No intrahepatic or extrahepatic ductal dilatation. SPLEEN: Normal size. No focal lesions. PANCREAS: No identified cystic or solid masses. No significant calcifications. No adjacent inflammation or peripancreatic fluid collections. Pancreatic duct not dilated. ADRENALS: Normal. KIDNEYS/URINARY TRACT: There is a 5 mm calculus in the interpolar region of the right kidney and a few punctate 1-2 mm calculi in the lower pole. There is no hydronephrosis or hydroureter. The ureters are difficult to completely trace to the urinary bladder, however no obvious calcifications are seen along the expected course of the ureters. Urinary bladder is mostly decompressed and not well evaluated. GI: Stomach is decompressed. No dilated or thick-walled loops of bowel appreciated. The appendix is difficult to trace due to lack of IV or oral contrast and minimal intra-abdominal fat. No obvious inflammatory changes in the right lower quadrant. There is no significant diverticular disease. PERITONEUM: No ascites or free air. RETROPERITONEUM: No mass or adenopathy. REPRODUCTIVE: No significant abnormality. There appears to be a tampon within the vagina. VASCULATURE: No abdominal aortic aneurysm. MUSCULOSKELETAL: No significant abnormality. OTHER: There is a tiny fat containing umbilical hernia. THIS IS AN ELECTRONICALLY VERIFIED FINAL REPORT 05/04/2024 10:49 AM - Electronically signed by Enoc Leiva M.D. AM: AM Report ID: [id number] Reading Location: [id number] IMPRESSION: 1. Nonobstructing right renal calculi measuring up to 5 mm. No hydronephrosis or hydroureter. 2. Appendix is not definitively identified due to lack of IV or oral contrast and minimal intra-abdominal fat. No obvious inflammatory changes in the right lower quadrant. Recommend clinical correlation. us Oscar Herrera APRN, JAMES IMG CT ORDERABLE S Final Result * LIPID PANEL (04/23/2024 11:58 AM STONEWORKING BELT SANDER) CHOLESTEROL 162 <200 mg/dL 04/23/2024 1:47 PM STONEWORKING BELT SANDER [facility] TRIGLYCERIDES 91 <150 mg/dL 04/23/2024 1:47 PM STONEWORKING BELT SANDER [facility] HDL CHOLESTEROL 70 >40 mg/dL 1:47 PM STONEWORKING BELT SANDER [facility] LDL 74 <130 mg/dL 04/23/2024 1:47 PM STONEWORKING BELT SANDER [facility] VLDL 18 10 - 50 mg/dL 04/23/2024 1:47 PM STONEWORKING BELT SANDER [facility] CHOL/HDL RATIO 2.3 0.0 - 4.4 04/23/2024 1:47 PM STONEWORKING BELT SANDER [facility] NON-HDL CHOLESTEROL 92 <130 mg/dL 04/23/2024 1:47 PM STONEWORKING BELT SANDER [facility] IS THE PATIENT REQUIRED TO BE FASTING? Yes 04/23/2024 1:47 PM STONEWORKING BELT SANDER [facility] HAS THE PATIENT BEEN FASTING? Yes 04/23/2024 1:47 PM STONEWORKING BELT SANDER [facility] Blood Venipuncture / Unknown 04/23/2024 11:58 AM STONEWORKING BELT SANDER 04/23/2024 1:20 PM STONEWORKING BELT SANDER us iLse Blackwell SHIRT OPERATOR, COST MANAGER CHEMISTRY ORDERABLES Fin al Result [facility] [address] [place] [address] * HEPATITIS C ANTIBODY (07/22/2023 11:06 AM CDT) hepatitis C antibody 0.14 <1 S/CO 07/22/2023 9:35 PM CDT [facility] Comment: Signal/Cutoff ratio < 0.79 is Nondetected Signal/Cutoff ratio 0.80-0.99 is Grayzone Signal/Cutoff ratio > 0.99 is Detected Supplemental assays are recommended if signal/cutoff ratio is >/=1.00. Signal/cutoff ratio result >/= 5.00 is 97% predictive of positivity for recombinant immunoblot assay (RIBA) and will be reported to the [place] Department of Public Health as required. Blood Venipuncture / Unknown 07/22/2023 11:06 AM CDT 07/22/2023 11:06 AM CDT us Lise Blackwell APRN, COST MANAGER CHEMISTRY ORDERABLES Fin al Result [facility] [address] [place] [address], [place] from Last 3 Months or Most Recently Relevant to Health Maintenance Insurance MEDICAID [place] Care Teams Pot Feeder Relationship Specialty Start Date End Date Lise Blackwell, SHIRT OPERATOR, COST MANAGER [address] [place] [address] PCP - General Advanced Practice Nurse 03/22/23 Jimi Pitt MD [address] [place], [address] [address] Consulting Physician Urology 06/17/24
--- OUTSIDE RECORDS SUMMARY | 2024-07-26 11:22 | XMS_ITS | Encounter Summary ---
Author Organization [facility] Address [address] [place] [address] Phone Care Team Providers Care Chamber Walker Name Role Phone Lise Blackwell VISITING NURSE, APPLICATIONS INSTRUCTOR Primary Care Provider + Joel Reese MD Unavailable Jimi Pitt MD Unavailable Reason for Visit * Reason Comments Medication Refill Encounter Details Date Type Department Care Team (Late st Contact Info) Description 03/22/2023 Refill [facility] [address] [place] [phone] Lise Blackwell, VISITING NURSE, APPLICATIONS INSTRUCTOR [address] [place] [address] Medication Refill Social History Tobacco Use Types Packs/Day Years Used Date Smoking Tobacco: Never Smokeless Tobacco: Never Alcohol Use Standard Drinks/Week Comments Yes 0 (1 standard drink = 0.6 oz pur e alcohol) Rare Sexually Active Control Partners Comments Not Currently Female Comments No Sex and Gender Information Value Date Recorded Sex Assigned at Female 10/31/2023 5:22 PM CDT Legal Sex Female 1:28 PM CDT Gender Identity Female 10/31/2023 5:22 PM CDT Sexual Orientation Straight 12/23/2023 7: 01 PM CDT documented as of this encounter Functional Status * Question Answer Date of Assessment Author Little interest or pleasure in doing things Not at all 03/22/2023 3:14 PM Leonila Sapp MA Feeling down, depressed, or hopeless Not at all 03/22/2023 3:14 PM Leonila Sapp MA * Over the past 2 weeks, how often have you been bothered by any of the following problems? Question Answer Date of Assessment Author Patient Health Questionnaire -2 Score 0 03/22/2023 3:14 PM Leonila Sapp MA documented as of this encounter Plan of Treatment Upcoming Encounters Date Type Department Care Team (Late st Contact Info) Description 08/06/2024 9:45 AM CDT Office Visit [facility] [address]2 [place] [address] Jimi Pitt MD #[address] [address] 11/25/2024 8:30 AM CDT Office Visit [facility] [address] [place] [address] Lise Blackwell APRN, APPLICATIONS INSTRUCTOR [address] [place] [address] documented as of this encounter Visit Diagnoses Diagnosis Diabetes 1.5, managed as type 2 (HCC) documented in this encounter Additional Health Concerns Infection Onset Date Last Indicated Resolved Time COVID - 19 10/24/2023 10/24/2023 10/24/2023 8:11 PM CDT COVID - 19 12/27/2023 12/27/2023 12/27/2023 3:00 PM CDT COVID - 19 01/15/2024 01/15/2024 01/15/2024 3:30 PM CDT COVID - 19 07/22/2024 07/22/2024 07/22/2024 12:2 8 PM CDT documented as of this encounter Care Teams Chamber Walker Relationship Specialty Start Date End Date Lise Blackwell, VISITING NURSE, APPLICATIONS INSTRUCTOR [address] [place] [address] PCP - General Advanced Practice Nurse 03/22/23 Joel Reese MD #2 [facility] [address] [place] [address] Consulting Physician Endocrinology 05/16/23 01/23/24 Jimi Pitt MD #2 [facility] [address] [place] [address] Consulting Physician Urology 06/17/24 documented as of this encounter
--- OUTSIDE RECORDS SUMMARY | 2024-07-26 11:22 | XMS_ITS | Encounter Summary ---
Author Organization [facility] Address [address] [facility] [place] [address] Phone Care Team Providers Care Livestock Judging Coach Name Role Phone Lise Blackwell APRN, LANGUAGE PATHOLOGIST Primary Care Provider + Joel Reese MD Unavailable Jimi Pitt MD Unavailable Reason for Visit * Reason Comments Medication Refill Encounter Details Date Type Department Care Team (Late st Contact Info) Description 05/28/2023 Refill [facility] [address] [place] [phone] Lise Blackwell, ICE CREAM MAN, LANGUAGE PATHOLOGIST [address] [place] [address] Medication Refill Social History Tobacco Use Types [...] PM CDT documented as of this encounter Miscellaneous Notes * Telephone Encounter - Lesley Nieto RN - 05/29/2023 11:01 AM CDT Medication(s) [facility] Medication Refill Standing Order for Pediatricand Adult Patients. Requested Prescriptions Pending Prescriptions Disp Refills metFORMIN (GLUCOPHAGE) 500 MG Tablet [Pharmacy Med Name: METFORMIN 500MG TABLETS] 60 Tablet 2 Sig: TAKE 1 TABLET BY MOUTH TWICE DAILY Biguanides Protocol Passed - 05/28/2023 7:46 PM Passed - Visit with relevant provider in past 6 months or upcoming 90 days Recent Visits Date Type Provider Dept 04/01/23 Office Visit Oriana Ugarte APRN, [facility] [place] 03/22/23 Office Visit Lise Blackwell APRN, [facility] Showing recent visits within past 182 days and meeting all other requirements Future Appointments Date Type Provider Dept 07/22/23 Appointment Lise Blackwell APRN, [facility] Showing future appointments within next 90 days and meeting all other requirements Passed - HgA1C on record in past 6 months HGB-A1C Date Value Ref Range Status 03/22/2023 0 (A) 4 - 6 % Corrected Passed - GFR on record in past 6 months GFR, EST. NONAFRICAN Date Value Ref Range Status 03/27/2023 >60 >=60 Final documented in this encounter Plan of Treatment Upcoming Encounters Date Type Department Care Team (Late st Contact Info) Description 08/06/2024 9:45 AM CDT Office Visit [facility] #[address] [place] [address] Jimi Pitt MD [address] [address] 11/25/2024 8:30 AM CDT Office Visit [facility] - Family Medicine [facility] [address] [place] [address] Lise Blackwell APRN, LANGUAGE PATHOLOGIST [address] [place] [address] documented as of this encounter Visit Diagnoses [...] documented as of this encounter Care Teams Livestock Judging Coach Relationship Specialty Start Date End Date Lise Blackwell, ICE CREAM MAN, LANGUAGE PATHOLOGIST [address] [place] [address] PCP - General Advanced Practice Nurse 03/22/23 Joel Reese MD #2 [facility] [address] [place] [phone] Consulting Physician Endocrinology 05/16/23 01/23/24 Jimi Pitt MD #2 [facility] [address] [place] [address] Consulting Physician Urology 06/17/24 documented as of this encounter
--- OUTSIDE RECORDS SUMMARY | 2024-07-26 11:22 | XMS_ITS | Clinical Summary ---
Author Organization [facility] Address [address] [place] [address] Care Team Providers Care Chief Credit Officer Name Role Phone No, Physician Primary Care Provider [phone] Allergies No known active allergies Medications naproxen (NAPROSYN) 500 mg tablet Take 1 tablet (500 mg total) by mouth 2 (two) times a day with meals 30 tablet 05/12/2022 Active Active Problems No known active problems Surgical History Surgery Date Site/Laterality Comments TONSILLECTOMY/ADENOIDECTOMY Medical History Medical History Date Comments Diabetes mellitus type 2 in nonobese (HCC) on metformin Tobacco use Marijuana use Social History Tobacco Use Types Packs/Day Years Used Date Smoking Tobacco: Every Day Alcohol Use Standard Drinks/Week Comments Defer 0 (1 standard drink = 0.6 oz pur e alcohol) Personal Safety Answer Date Recorded Getting School Help Needed Not on file 05/16 Comments No Sex and Gender Information Value Date Recorded Sex Assigned at Not on file Legal Sex Female 4:47 PM BAG FILLER MACHINE OPERATOR Gender Identity Not on file Sexual Orientation Not on file Obstetrics History Last Filed Vital Signs Vital Sign Reading Time Taken Comments Blood Pressure 104/75 05/12/2022 6:00 AM BAG FILLER MACHINE OPERATOR Pulse 68 05/12/2022 6:00 AM BAG FILLER MACHINE OPERATOR Temperature 36.6 C (97.8 F) 05/11/2022 10:05 PM BAG FILLER MACHINE OPERATOR Respiratory Rate 20 05/12/2022 5:45 AM BAG FILLER MACHINE OPERATOR Oxygen Saturation 99% 05/12/2022 6:00 AM BAG FILLER MACHINE OPERATOR Inhaled Oxygen Concentration - - Weight 63.5 kg (140 lb) 05/11/2022 10:05 PM BAG FILLER MACHINE OPERATOR Height 152.4 cm (5') 05/11/2022 10:05 PM BAG FILLER MACHINE OPERATOR Body Mass Index 27.34 05/11/2022 10:05 PM BAG FILLER MACHINE OPERATOR Plan of Treatment Health Maintenance Due Date Last Done Comments Cervical Cancer Screening 2002 Depression Screening 2002 Hepatitis C Screening 2002 DTaP/Tdap/Td Vaccine (1 - Tdap) 2013 Varicella Vaccines (1 of 2 - 13+ 2-dose series) 2014 HPV Vaccines (1 - 3-dose series) 2017 Meningococcal B Vaccine (1 of 2 - Standard) 2018 Hepatitis B Screening 2020 Regular Well Visit/Exam 18-64 2020 Pneumococcal vaccine <65 (1 of 2 - PCV) 2021 Influenza Vaccine (#1) 2023 03/13/2004 Insurance [place] [id number] [place] [id number] Care Teams Chief Credit Officer Relationship Specialty Start Date End Date No, Physician PCP - General 04/17/21
--- OUTSIDE RECORDS SUMMARY | 2024-07-26 11:22 | XMS_ITS | Encounter Summary ---
Author Organization [facility] Address [address] [facility] [place] [address] Phone Care Team Providers Care Varnish Mixer Name Role Phone Lise Blackwell CONCRETE FINISHER, BEAUTY ADVISOR Primary Care Provider + Jimi Pitt MD Unavailable Encounter Details Date Type Department Care Team (Late st Contact Info) Description 06/22/2024 Results Follow-Up [facility] - Family Medicine [facility] [address] [place] [address] Lise Blackwell, CONCRETE FINISHER, BEAUTY ADVISOR [address] [place] [address] CMP (COMPREHENSIVE METABOLIC PANEL), HEMOGLOBIN A1C W/ ESTIMATED GLUCOSE, CBC WITH AUTO DIFFERENTIAL, THYROID SCREEN WITH REFLEX Social History Tobacco Use Types Packs/Day Years Used Date Smoking Tobacco: Never Smokeless Tobacco: Never Alcohol Use Standard Drinks/Week Comments Yes 0 (1 standard drink = 0.6 oz pur e alcohol) Rare [facility] Utilities Answer Date Recorded In the past 12 months has [employer] electric, gas, oil, or water company threatened to shut off services in your [...] often do you attend jehovah's witness or roman catholic serv ices? Never 10/02/2023 Do you belong [...] Score - Questions 1-9 0 02/0 08/2024 [facility] - Occupational Stress [...] any time in the past 12 m [facility], were you homeless or living in a half-way (including now)? No 10/02/2023 Sexually Active Control Partners Comments Yes Male Condom Female NUVA RING Comments No Sex and Gender Information Value Date Recorded Sex Assigned at Female 10/31/2023 5:22 PM CDT Legal Sex Female 1:28 PM CDT Gender Identity Female 10/31/2023 5:22 PM CDT Sexual Orientation Straight 12/23/2023 7: 01 PM CDT documented as of this encounter Plan of Treatment Upcoming Encounters Date Type Department Care Team (Late st Contact Info) Description 08/06/2024 9:45 AM CDT Office Visit [facility] #[address] [place] [address] Jimi Pitt MD #[address] [address] 11/25/2024 8:30 AM CDT Office Visit [facility] [address] [place] [address] Lise Blackwell, CONCRETE FINISHER, BEAUTY ADVISOR [address] [place] [address] documented as of this encounter Visit Diagnoses Not on filedocumented in this encounter Additional Health Concerns Infection Onset Date Last Indicated Resolved Time COVID - 19 07/22/2024 07/22/2024 07/22/2024 12:2 8 PM CDT Assessment Noted Time PHQ-9 Depression Total Score: 0 04/23/19 25 11:12 AM COMMISSARY WORKER documented as of this encounter Care Teams Varnish Mixer Relationship Specialty Start Date End Date Lise Blackwell, CONCRETE FINISHER, BEAUTY ADVISOR [address] [place] [address] PCP - General Advanced Practice Nurse 03/22/23 Jimi Pitt MD [facility], [address] [address] Consulting Physician Urology 06/17/24 documented as of this encounter
--- OUTSIDE RECORDS SUMMARY | 2024-07-26 11:22 | XMS_ITS | Referral Summary ---
Author Organization [facility] Address [address] [place] [address] Care Team Providers Care Machining Supervisor Name Role Phone No, Physician Primary Care Provider [phone] Allergies No known active allergies Medications naproxen (NAPROSYN) 500 mg tablet Take 1 tablet (500 mg total) by mouth 2 (two) times a day with meals 30 tablet 05/12/2022 Active Active Problems No known active problems Social History Tobacco Use Types Packs/Day Years Used Date Smoking Tobacco: Every Day Alcohol Use Standard Drinks/Week Comments Defer 0 (1 standard drink = 0.6 oz pur e alcohol) Personal Safety Answer Date Recorded Getting School Help Needed Not on file 05/16 Comments No Sex and Gender Information Value Date Recorded Sex Assigned at Not on file Legal Sex Female 4:47 PM ASSISTANT MANAGER OF OPERATIONS Gender Identity Not on file Sexual Orientation Not on file Last Filed Vital Signs Vital Sign Reading Time Taken Comments Blood Pressure 104/75 05/12/2022 6:00 AM ASSISTANT MANAGER OF OPERATIONS Pulse 68 05/12/2022 6:00 AM ASSISTANT MANAGER OF OPERATIONS Temperature 36.6 C (97.8 F) 05/11/2022 10:05 PM ASSISTANT MANAGER OF OPERATIONS Respiratory Rate 20 05/12/2022 5:45 AM ASSISTANT MANAGER OF OPERATIONS Oxygen Saturation 99% 05/12/2022 6:00 AM ASSISTANT MANAGER OF OPERATIONS Inhaled Oxygen Concentration - - Weight 63.5 kg (140 lb) 05/11/2022 10:05 PM ASSISTANT MANAGER OF OPERATIONS Height 152.4 cm (5') 05/11/2022 10:05 PM ASSISTANT MANAGER OF OPERATIONS Body Mass Index 27.34 05/11/2022 10:05 PM ASSISTANT MANAGER OF OPERATIONS Plan of Treatment Not on file Insurance [facility] Care Teams Machining Supervisor Relationship Specialty Start Date End Date No, Physician PCP - General 04/17/21
--- OUTSIDE RECORDS SUMMARY | 2024-07-26 11:22 | XMS_ITS | Encounter Summary ---
Author Organization [facility] Address [address] [facility] [address] [place] [address] Phone Care Team Providers Care Research Chemical Engineer Name Role Phone Lise Blackwell APRN, FLOWER MAKER Primary Care Provider + Joel Reese MD Unavailable Jimi Pitt MD Unavailable Reason for Visit * Reason Comments Medication Refill Encounter Details Date Type Department Care Team (Late st Contact Info) Description 11/20/2023 Refill [facility] [address] [place] [address] Lise Blackwell, MARIA G, FLOWER MAKER [address] [place] [address] Medication Refill Social History Tobacco Use Types Packs/Day Years Used Date Smoking Tobacco: Never Smokeless Tobacco: Never Alcohol Use Standard Drinks/Week Comments Yes 0 (1 standard drink = 0.6 oz pur e alcohol) Rare [facility] Utilities Answer Date Recorded In the past 12 months has [employer] electric, gas, oil, or water company threatened [...] week 10/02/2023 How often do you attend gnosticist or buddhism serv ices? Never 10/02/2023 Do you belong to any clubs o r organizations such as gnosticist groups, unions, fraternal or athletic groups, or [...] medical care, and heating? Somewhat hard 10/02/2023 [facility] - Occupational [...] time in the past 12 m [facility], were you homeless or living in a penitentiary (including now)? No 10/02/2023 Sexually Active Control [...] Telephone Encounter - Lesley Nieto RN - 11/20/2023 10:27 AM CDT Images from the original note were not included. metFORMIN HCl Dispensed Days Supply Quantity Provider Pharmacy METFORMIN 500MG TABLETS 11/19/2023 90 180 Each Lise Blackwell APRN, FLOWER MAKER [facility]... documented in this encounter Plan of Treatment Upcoming Encounters Date Type Department Care Team (Late st Contact Info) Description 08/06/2024 9:45 AM CDT Office Visit [facility] [address] [place] [address] Jimi Pitt MD [address] [address] 11/25/2024 8:30 AM CDT Office Visit [facility] [address] [place] [address] Lise Blackwell APRN, FLOWER MAKER [address] [place] [address] documented as of this encounter Visit Diagnoses Diagnosis Diabetes 1.5, managed as type 2 (HCC) documented in this encounter Additional Health Concerns Infection Onset Date Last Indicated Resolved Time COVID - 19 12/27/2023 12/27/2023 12/27/2023 3:00 PM CDT COVID - 19 01/15/2024 01/15/2024 01/15/2024 3:30 PM CDT COVID - 07/22/2024 07/22/2024 07/22/2024 12:2 8 PM CDT documented as of this encounter Care Teams Research Chemical Engineer Relationship Specialty Start Date End Date Lise Blackwell, ROAD ROLLER OPERATOR, FLOWER MAKER [address] [place] [address] PCP - General Advanced Practice Nurse 03/22/23 oJel Reese MD [address] [facility] [address] [place] [address] Consulting Physician Endocrinology 05/16/23 01/23/24 Jimi Pitt MD [address]2 [facility] [address] [place] [address] Consulting Physician Urology 06/17/24 documented as of this encounter
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
--- OUTSIDE RECORDS SUMMARY | 2024-07-26 11:24 | XMS_ITS | Continuity of Care Document ---
Author Organization [facility] Address [address] [place] [address] Phone Care Team Providers Care Insurance Job Titles Name Role Phone Lakeshia MSN SECURITY SYSTEMS MANAGER-CChelsey Unavailable Unavai lable Allergies, Adverse Reactions, Alerts [...] Diagnoses Date Provider Providers Copied on Encounter [facility], [address] [place] [address], [address], [place] tel:[phone] [facility] No Information 2 Lakeshia Chelsey. [address] [place], [address], [place]. tel: [phone] OFFICE/OUTPA TIENT VISIT, EST [facility], [address] [place] [address], [place], tel:[phone] [facility] RASH ON HANDS (chief complaint) Contact dermatitis, unspecified contact dermatitis type, unspecified triggerDepression with anxietyPTSD (post-traumatic stress disorder) 2 Lakeshia Chelsey. [address], [place], [facility], . tel: [phone] OFFICE/OUTPA TIENT VISIT, [facility], [address] [place] [address], [place], tel:[phone] [facility] [place] - LAB DRAW (chief complaint) Type 2 diabetes mellitus without complication, without long-term current use of insulin 2 Lakeshia Chelsey. [address], [place], [facility], . tel: [phone] OFFICE/OUTPA TIENT VISIT, [facility], [address] [place] [address], [place], tel:[phone] [facility] EST CARE (chief complaint) Type 2 diabetes mellitus without complication, without long-term current use of insulinPTSD (post-traumatic stress disorder)Attention deficit disorder (ADD) in adultDepression with anxietyFatigue, unspecified typeChronic nonintractable headache, unspecified headache typeEstablishing care with new doctor, encounter forVitamin D deficiency, unspecifiedAcute diarrhea 2 Lakeshia Chelsey. [address], [place], [facility], [place]. tel: [phone] Family History Family Member Type Diagnosis Age At Onset No Information Payers Payer name Insurance type Covered alliance party ID Authorkaminia tiblane(s) [facility] [id number] Social History Type Description Quantity Date Captured [...] Future Order: Lab Order CBC W/DI FF ([id number]), Body Site: Left Antecubital Fossa, Collected on: , Sent on: Sent Future Order: Lab Order CMP ([id number]), Body Site: Left Antecubital Fossa, Collected on: , Sent on: Sent Future Order: Lab Order LIPID PA MAME ([id number]), Body Site: Left Antecubital Fossa, Collected on: , Sent on: Sent Future Order: Lab Order MAGNESIU M ([id number]), Body Site: Left Antecubital Fossa, Collected on: , Sent on: Sent Future Order: Lab Order TSH AND FREE T4 ([id number]), Body Site: Left Antecubital Fossa, Collected on: , Sent on: Sent Future Order: Lab Order MICROALB UMIN/CREATININE RATIO ([id number]), Body Site: Left Antecubital Fossa, Collected on: , Sent on: Sent Future Order: Lab Order VITAMIN D (25) ([id number]), Body Site: Left Antecubital Fossa, Collected on: , Sent on: Sent Future Order: Lab Order C-PEPTID E ([id number]), Body Site: Left Antecubital Fossa, Collected on: [...] 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 Related to Depression with anxiety Take medication as directed. Rel ated to Depression with anxiety Observe for worsening s/s. Relat ed to Depression with anxiety Goal of treatment di scussed, observe for suicidal thoughts Related to PTSD (post-traumatic stress disorder) Observe for medicati on side effect, Observe for worsening s/s Related to PTSD (post-traumatic stress disorder) Encouraged coping ac tivities, counseling Related to PTSD (post-traumatic stress disorder) Increase clear fluids. Related t o Acute diarrhea Observe for worsening s/s. Relat ed to Acute diarrhea Call office with any acute arin rns. Related to Acute diarrhea Encouraged home bloo d sugar monitoring. Avoid [...] complication, without long-term current use of insulin Follow prescribed diet plan. Rel ated to Type 2 diabetes mellitus without complication, without long-term current use of insulin Have labs completed as soon as possible. Related to PTSD (post-traumatic stress disorder) Attend scheduled naya t with specialists. Related to PTSD (post-traumatic stress disorder) Call office with any acute arin rns. Related to PTSD (post-traumatic stress disorder) Observe for medicati on side effect, Observe for worsening s/s Related to PTSD (post-traumatic stress disorder) Encouraged coping ac tivities, counseling Related to PTSD (post-traumatic stress disorder) Observe for worsening s/s. Relat ed to Attention deficit disorder (ADD) in adult Call office with any acute arin rns. Related to Attention deficit disorder (ADD) in adult Call office with any acute arin rns. Related to Depression with anxiety Observe for worsening s/s. Relat ed to Depression with anxiety Increase clear fluids. Related t o Chronic nonintractable headache, unspecified headache type Observe for worsening s/s. Relat ed to Chronic nonintractable headache, unspecified headache type Call office with any acute arin rns. Related to Chronic nonintractable headache, unspecified headache type Rest, Proper nutriti on and activity. Weight management Related to Fatigue, unspecified type Have labs completed as soon as possible. Related to Fatigue, unspecified type Avoid foods high in calorie. Increase fluids. Related to Vitamin D deficiency, unspecified Improve diet and exercise, activ ity Related to Vitamin D deficiency, unspecified Have labs completed as soon as possible. Related to Vitamin D deficiency, unspecified Assessments Type Assessment Date No Information Patient Care Teams Name Effective Dates (start - stop) Status Members No Information
[2024-07-26 11:25] VITALS: BP 141/80; PULSE 113; RESP 18; TEMP 36.6; O2SAT 99
--- NOTE | 2024-07-26 11:35 | ED.URI ---
HPI - URI/Sore Throat General Chief Complaint: Upper Respiratory Infection Stated Complaint: sore throat, eyes shut, ear/throat drainage Time Seen by Provider: 07/26/24 11:35 Source: patient and RN notes reviewed Mode of arrival: ambulatory Limitations: no limitations History of Present Illness HPI Narrative: 24-year-old female presents with concern for left eye redness and drainage. Reports she was seen in the ER Saturday for cold symptoms and was tested for RSV, COVID and flu. Reports she is still having a sore throat. She denies fever. Denies vision changes MD elicited complaint: sore throat and other (Eye drainage) Related Data Allergies Allergy/AdvReac Type Severity Reaction Status Date / Time No Known Allergies Allergy Verified 07/26/24 11:30 Review of Systems Review of Systems: CONSTITUTIONAL: Denies malaise, chills, sweats, or fever. EYES: Denies visual changes. Reports left eye redness and discharge. ENT: Reports rhinorrhea, congestion, and sore throat. CARDIOVASCULAR: Denies chest pain, palpitations, or edema. RESPIRATORY: Reports cough. Denies dyspnea. GASTROINTESTINAL: Denies abdominal pain, nausea, vomiting, diarrhea SKIN: Denies rash or itching. MUSCULOSKELETAL: Denies myalgia. NEUROLOGIC: Denies headache. All systems reviewed & are unremarkable except as noted in HPI and below PMFSH Past Medical History Medical History Anxiety Diabetes Surgical History Surgical History History of tonsillectomy Family History Family History Mother Family history non-contributory Social History Social History Smoking status: Current every day smoker Tobacco type: e-cigarettes/vaping Substance use: current Substance use type: marijuana Living arrangements: with roommate(s) Gender identity (if verbalized by the patient): Female Spiritual care concerns: No Comments At time of signature, agree with nursing past medical, surgical, social and family history. There is no relevant family history pertinent to the presenting complaint Exam Narrative: GENERAL: Well-appearing, well-nourished, and in no acute distress. HEAD: Normocephalic EYES: PERRLA, left sclera and conjunctivae injected ENT: Nares clear. Mucous membranes moist. TM pearly dyson with sharp light reflex bilaterally; no tragal tenderness. Oropharynx not erythematous without lesions. Tonsils not enlarged and without exudate, no drooling, no hoarseness, no trismus, uvula midline. NECK: Supple. No lymphadenopathy CHEST: Clear to auscultation, breath sounds equal. No wheezing, rhonchi, rales, or stridor. No respiratory distress, speaks in full sentences. HEART: Regular rate and rhythm. No murmur heard. SKIN: Warm, dry, no rash. NEURO: Alert and oriented x3. PSYCH: Normal mood and affect Course Course Emergency Course: Patient is aware of diagnosis, understands and agrees to treatment plan. Anticipatory guidance given. Patient agrees to follow-up as directed and is aware of reasons to seek care at the emergency department. Portions of this record may have been created with voice recognition software Level of Care: Express Care Visit Vital Signs Vital signs: Vital Signs Temperature 97.8 F 07/26/24 11:25 Pulse Rate 113 H 07/26/24 11:25 Respiratory Rate 18 07/26/24 11:25 Blood Pressure 141/80 H 07/26/24 11:25 Pulse Oximetry 99 07/26/24 11:25 Oxygen Delivery Room Air 07/26/24 11:25 Temperature 97.8 F 07/26/24 11:25 Pulse Rate 113 H 07/26/24 11:25 Respiratory Rate 18 07/26/24 11:25 Blood Pressure 141/80 H 07/26/24 11:25 Pulse Oximetry 99 07/26/24 11:25 Oxygen Delivery Room Air 07/26/24 11:25 Reviewed. MDM - URI/Sore Throat MDM Narrative Medical decision making narrative: Differential diagnosis considered: Marcum virus, strep pharyngitis, allergic rhinitis, upper respiratory tract infection, sinusitis, rhinosinusitis, nasopharyngitis. viral pharyngitis, otitis media, otitis externa, pneumonia, bronchitis, viral cough syndrome, viral syndrome, and influenza. Exam findings show no acute concerns or changes; patient is non-toxic appearing and is in no distress. Patient is appropriate for outpatient treatment and follow-up. Lab Data Attestation: I reviewed the patient's lab results. Critical Care Time Critical Care Time Critical Care Time: No Discharge Plan Discharge Clinical Impression: Conjunctivitis Patient Disposition: Home Condition: Stable Instructions: Conjunctivitis (ED) Additional Instructions: Do not touch or rub your eye. Use a warm or cool washcloth on your eye for comfort Use eyedrops as directed Practice good handwashing and hygiene to prevent spread of infection You may take Tylenol or ibuprofen for pain Follow-up with PCP or respiratory manager if condition is not improving in 2-3days. Go to the emergency room if you have pain behind your eye, pressure behind your eye, difficulty seeing, or other severe symptoms Patient Language: Gabonese Prescriptions: New polymyxin B sulf-trimethoprim 10,000 unit- 1 mg/mL drops 1 drp LEFT EYE Q3H 7 Days Qty: 10 0RF Rx Instructions: while awake; do not exceed 6 doses in 24 hours No Action metformin 500 mg tablet 500 mg PO BID Qty: 60 0RF Follow-up/Referrals: PHYSICIAN NOT ON STAFF,NONSTAFF [Primary Care Provider] - Stand Alone Forms: Work/School Release IP Time of Disposition: 11:48
[2024-07-26 11:42] LABS: EDSTREPNEGPOS1 Negative (Negative)
== END 2024-07-26 11:56 | disposition home or self-care (01) ==
PROVIDERS: Emergency Provider Nurse Practitioner
DX: H10.9 Unspecified conjunctivitis (principal); F17.290 Nicotine dependence, other tobacco product, uncomplicated; F12.90 Cannabis use, unspecified, uncomplicated; E11.9 Type 2 diabetes mellitus without complications
CPT/HCPCS: 87081; 87880; 99213; G0463

== ENCOUNTER 2024-09-28 16:51 | Emergency (ER) | payer BC, SELFPAY ==
--- OUTSIDE RECORDS SUMMARY | 2024-09-28 16:53 | XMS_ITS | Encounter Summary ---
Author Organization [facility] Address [address] [place] [address] Phone Care Team Providers Care Blurb Writer Name Role Phone Lise Blackwell BLACK TOP SPREADER MACHINE OPERATOR, BOXING INSTRUCTOR Primary Care Provider + Jimi Pitt MD Unavailable Encounter Details Date Type Department Care Team (Late st Contact Info) Description 09/10/2024 Results Follow-Up [facility] [address] [place] [address] Jimi Pitt MD [address] [address] XR ABDOMEN KUB FLAT PLATE Social History Tobacco Use Types Packs/Day Years Used Date Smoking Tobacco: Never Smokeless Tobacco: Never Alcohol Use Standard Drinks/Week Comments Yes 0 (1 standard drink = 0.6 oz pur e alcohol) Rare [facility] Utilities Answer Date Recorded In the past 12 months has [employer], gas, oil, or water [employer] threatened to shut off services in your home? No 10/02/2023 Social Connection and Isolation Panel Answer Date Recorded In a typical week, how many times do you talk on the phone with family, friends, or neighbors? Twice a week 10/02/2023 How often do you get together with friends or re latives? Once a week 10/02/2023 How often do you attend adventist or pentecostal serv ices? Never 10/02/2023 Do you belong to any clubs o r organizations such as adventist groups, unions, fraternal or athletic groups, or [...] Score - Questions 1-9 0 02/0 08/2024 [facility] - Occupational Stress Questionnaire Answer Date Recorded [...] any time in the past 12 m onths, were you homeless or living in a residential (including now)? No 10/02/2023 Sexually Active Control Partners Comments Yes Male Condom, Inserts Female NUVA RI NG Comments No Sex and Gender Information Value Date Recorded Sex Assigned at Female 10/31/2023 5:22 PM CDT Legal Sex Female 1:28 PM CDT Gender Identity Female 10/31/2023 5:22 PM CDT Sexual Orientation Straight 12/23/2023 7: 01 PM CDT documented as of this encounter Progress Notes * Jimi Pitt MD - 09/10/2024 8:20 AM CDT KUB 08/2024 = no stone seen. Images reviewed. ESWL worked well. Follow up in the office in 6 months with another KUB. documented in this encounter Miscellaneous Notes * Telephone Encounter - Jimi Pitt MD - 09/10/2024 8:20 AM CDT KUB 08/2024 = no stone seen. Images reviewed. ESWL worked well. Follow up in the office in 6 months with another KUB. documented in this encounter Plan of Treatment Upcoming Encounters Date Type Department Care Team (Late st Contact Info) Description 10/01/2024 10:15 AM CDT Office Visit [facility] [address] [place] [address] Jimi Pitt MD [address], [address] [address] 11/25/2024 8:30 AM CDT Office Visit [facility] [address] [place] [address] Lise Blackwell, BLACK TOP SPREADER MACHINE OPERATOR, BOXING INSTRUCTOR [address] [place] [address] documented as of this encounter Visit Diagnoses Not on filedocumented in this encounter Additional Health Concerns Assessment Noted Time PHQ-9 Depression Total Score: 0 04/23/19 25 11:12 AM 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
--- OUTSIDE RECORDS SUMMARY | 2024-09-28 16:53 | XMS_ITS | Clinical Summary ---
Author Organization [facility] Address [address] [place] [address] Care Team Providers Care Safety Scientist Name Role Phone No, Physician Primary Care Provider [phone] Allergies No known active allergies Medications naproxen [...] on file Legal Sex Female 4:47 PM EMPLOYEE BENEFITS ADMINISTRATOR Gender Identity Not on file Sexual Orientation Not on file Obstetrics History Last Filed Vital Signs Vital Sign Reading Time Taken Comments Blood Pressure 104/75 05/12/2022 6:00 AM EMPLOYEE BENEFITS ADMINISTRATOR Pulse 68 05/12/2022 6:00 AM EMPLOYEE BENEFITS ADMINISTRATOR Temperature 36.6 C (97.8 F) 05/11/2022 10:05 PM EMPLOYEE BENEFITS ADMINISTRATOR Respiratory Rate 20 05/12/2022 5:45 AM EMPLOYEE BENEFITS ADMINISTRATOR Oxygen Saturation 99% 05/12/2022 6:00 AM EMPLOYEE BENEFITS ADMINISTRATOR Inhaled Oxygen Concentration - - Weight 63.5 kg (140 lb) 05/11/2022 10:05 PM EMPLOYEE BENEFITS ADMINISTRATOR Height 152.4 cm (5') 05/11/2022 10:05 PM EMPLOYEE BENEFITS ADMINISTRATOR Body Mass Index 27.34 05/11/2022 10:05 PM EMPLOYEE BENEFITS ADMINISTRATOR Plan of Treatment Health Maintenance Due Date [...] of 2 - PCV) 2021 Influenza Vaccine (Season Ended) 2024 03/13/20 04 Insurance ALANNAH RENTERIA [id number] Care Teams Safety Scientist Relationship Specialty Start Date End Date No, Physician PCP - General 04/17/21
--- OUTSIDE RECORDS SUMMARY | 2024-09-28 16:53 | XMS_ITS | Encounter Summary ---
Author Organization [facility] Address [address] [facility] [place] [address] Phone Care Team Providers Care General Warehouse Worker Name Role Phone Lise Blackwell APRN, NAILING MACHINE OPERATOR Primary Care Provider + Joel Reese MD Unavailable Jimi Pitt MD Unavailable Reason for Visit * Reason Comments Medication Refill Encounter Details Date Type Department Care Team (Late st Contact Info) Description 11/20/2023 [facility]ill [facility] [address] [place] [address] Lise Blackwell, MARIA G, NAILING MACHINE OPERATOR [address] [place] [address] Medication Refill Social History Tobacco Use Types Packs/Day Years Used Date Smoking Tobacco: Never Smokeless Tobacco: Never Alcohol Use Standard Drinks/Week Comments Yes 0 (1 standard drink = 0.6 oz pur e alcohol) Rare [facility] Utilities Answer Date Recorded In the past 12 months has [employer] electric, gas, oil, or water company threatened [...] week 10/02/2023 How often do you attend mu-ism or caodaism serv ices? Never 10/02/2023 Do you belong to any clubs o r organizations such as mu-ism groups, unions, fraternal or athletic groups, or [...] medical care, and heating? Somewhat hard 10/02/2023 [facility] - Occupational [...] were you homeless or living in a usp (including now)? No 10/02/2023 Sexually Active Control [...] 11/19/2023 90 180 Each Lise Blackwell APRN, NAILING MACHINE OPERATOR [facility] #... documented in this encounter Plan of Treatment Upcoming Encounters Date Type Department Care Team (Late st Contact Info) Description 10/01/2024 10:15 AM CDT Office Visit [facility] [address] [place] [address] Jimi Pitt MD #[address] [address] 11/25/2024 8:30 AM CDT Office Visit [facility] [address] [place] [address] Lise Blackwell APRN, NAILING MACHINE OPERATOR [address] [place] [address] documented as of this encounter Visit Diagnoses Diagnosis Diabetes 1.5, managed as type 2 (HCC) documented in this encounter Additional Health Concerns Infection Onset Date Last Indicated Resolved Time COVID - 12/27/2023 12/27/2023 12/27/2023 3:00 PM CDT COVID - 19 01/15/2024 01/15/2024 01/15/2024 3:30 PM CDT COVID - 07/22/2024 07/22/2024 07/22/2024 12:2 8 PM CDT documented as of this encounter Care Teams General Warehouse Worker Relationship Specialty Start Date End Date Lise Blackwell, HARNESS BRUSHER, NAILING MACHINE OPERATOR [address] [place] [address] PCP - General Advanced Practice Nurse 03/22/23 Joel Reese MD [address] [address] [place] [address] Consulting Physician Endocrinology 05/16/23 01/23/24 Jimi Pitt MD [facility] [address] [place] [address] Consulting Physician Urology 06/17/24 documented as of this encounter
--- OUTSIDE RECORDS SUMMARY | 2024-09-28 16:53 | XMS_ITS | Referral Summary ---
Author Organization [facility] Address [address] [place] [address] Care Team Providers Care Video Journalist Name Role Phone No, Physician Primary Care Provider [phone] Allergies No known active allergies Medications naproxen [...] on file Legal Sex Female 4:47 PM MILK ROUTE DELIVERER Gender Identity Not on file Sexual Orientation Not on file Last Filed Vital Signs Vital Sign Reading Time Taken Comments Blood Pressure 104/75 05/12/2022 6:00 AM MILK ROUTE DELIVERER Pulse 68 05/12/2022 6:00 AM MILK ROUTE DELIVERER Temperature 36.6 C (97.8 F) 05/11/2022 10:05 PM MILK ROUTE DELIVERER Respiratory Rate 20 05/12/2022 5:45 AM MILK ROUTE DELIVERER Oxygen Saturation 99% 05/12/2022 6:00 AM MILK ROUTE DELIVERER Inhaled Oxygen Concentration - - Weight 63.5 kg (140 lb) 05/11/2022 10:05 PM MILK ROUTE DELIVERER Height 152.4 cm (5') 05/11/2022 10:05 PM MILK ROUTE DELIVERER Body Mass Index 27.34 05/11/2022 10:05 PM MILK ROUTE DELIVERER Plan of Treatment Not on file Insurance [facility] PLAN [facility] PLAN Care Teams Video Journalist Relationship Specialty Start Date End Date No, Physician PCP - General 04/17/21
--- OUTSIDE RECORDS SUMMARY | 2024-09-28 16:54 | XMS_ITS | Encounter Summary ---
Author Organization [facility] Address [address] [facility] [place] [address] Phone Care Team Providers Care Station Usher Name Role Phone Lise Blackwell APRN, FOURDRINIER OPERATOR Primary Care Provider + Joel Reese MD Unavailable Jimi Pitt MD Unavailable Reason for Visit * Reason Comments Medication Refill Encounter Details Date Type Department Care Team (Late st Contact Info) Description 05/28/2023 Refill [facility] #[address] [place] [phone] Lise Blackwell, PUBLICATIONS DISTRIBUTION CLERK, FOURDRINIER OPERATOR [address] [place] [address] Medication Refill Social History Tobacco Use Types [...] AM CDT Medication(s) refilled and signed per [facility] Chronic Medication Refill Standing Order for Pediatricand [...] 04/01/23 Office Visit Oriana Ugarte APRN, [facility] 03/22/23 Office Visit Lise Blackwell APRN, [facility] Showing recent visits within past 182 days and meeting all other requirements Future Appointments Date Type Provider Dept 07/22/23 Appointment Lise Blackwell APRN, [facility] Showing future appointments within next 90 days [...] Description 10/01/2024 10:15 AM CDT Office Visit [facility] [place] [address] Jimi Pitt MD [address] [address] 11/25/2024 8:30 AM CDT Office Visit [facility] - [facility] #[address] [place] [address] Lise Blackwell APRN, FOURDRINIER OPERATOR #[address] [place] [address] documented as of this encounter Visit Diagnoses [...] documented as of this encounter Care Teams Station Usher Relationship Specialty Start Date End Date Lise Blackwell, PUBLICATIONS DISTRIBUTION CLERK, FOURDRINIER OPERATOR [address] [place] [address] PCP - General Advanced Practice Nurse 03/22/23 Joel Reese MD #2 [facility] [address] [place] [address] Consulting Physician Endocrinology 05/16/23 01/23/24 Jimi Pitt MD #2 [facility] [address] [place] [address] Consulting Physician Urology 06/17/24 documented as of this encounter
--- OUTSIDE RECORDS SUMMARY | 2024-09-28 16:54 | XMS_ITS | Encounter Summary ---
Author Organization [facility] Address [address] [facility] [place] [address] Phone Care Team Providers Care Biofuels Technology Manager Name Role Phone Lise Blackwell PEAR PICKER, MANAGER HOSPICE Primary Care Provider + Joel Reese MD Unavailable Jimi Pitt MD Unavailable Reason for Visit * Reason Comments Medication Refill Encounter Details Date Type Department Care Team (Late st Contact Info) Description 03/22/2023 [facility]ill [facility] #2 [place] [phone] Lise Blackwell, PEAR PICKER, MANAGER HOSPICE #2 [place] [address] Medication Refill Social History Tobacco Use Types [...] Description 10/01/2024 10:15 AM CDT Office Visit [facility] #2 [place] [address] Jimi Pitt MD #[address] [address] 11/25/2024 8:30 AM CDT Office Visit [facility] [address]2 [facility] [place] [address] Lise Blackwell APRN, MANAGER HOSPICE #2 [place] [address] documented as of this encounter Visit Diagnoses [...] documented as of this encounter Care Teams Biofuels Technology Manager Relationship Specialty Start Date End Date Lise Blackwell, PEAR PICKER, MANAGER HOSPICE #2 [place] [address] PCP - General Advanced Practice Nurse 03/22/23 Joel Reese MD #2 [facility] [address] [place] [address] Consulting Physician Endocrinology 05/16/23 01/23/24 Jimi Pitt MD #2 [facility] [address] [place] [address] Consulting Physician Urology 06/17/24 documented as of this encounter
--- OUTSIDE RECORDS SUMMARY | 2024-09-28 16:54 | XMS_ITS | Encounter Summary ---
Author Organization [facility] Address [address] [facility] [place] [address] Phone Care Team Providers Care Interpreter Deaf Name Role Phone Lise Blackwell APRN, IMMIGRATION LAW SPECIALIST Primary Care Provider + Jimi Pitt MD Unavailable Reason for Visit * Reason Onset Date Comments Advice Only 09/28/2024 Yeast Infection 09/28/2024 Encounter Details Date Type Department Care Team (Late st Contact Info) Description 09/28/2024 Nurse Triage [facility] [address] [place] [address] Lise Blackwell, SECURITY OFFICERS AND GUARDS, IMMIGRATION LAW SPECIALIST #2 [place] [address] Advice Only; Yeast Infection Social History Tobacco Use Types Packs/Day Years Used Date Smoking Tobacco: Never Smokeless Tobacco: Never Alcohol Use Standard Drinks/Week Comments Yes 0 (1 standard drink = 0.6 oz pur e alcohol) Rare [facility] Utilities Answer Date Recorded In the past 12 months has [employer] electric, gas, oil, or water company threatened [...] week 10/02/2023 How often do you attend sikh or hindu serv ices? Never 10/02/2023 Do you belong to any clubs o r organizations such as sikh groups, unions, fraternal or athletic groups, or [...] Recorded Total Score - Questions 1-9 0 08/2024 [facility] - Occupational Stress Questionnaire Answer Date Recorded [...] any time in the past 12 m [facility], were you homeless or living in a halfway (including now)? No 10/02/2023 Sexually Active Control [...] encounter Miscellaneous Notes * Telephone Encounter - Vickie Hansen RN - 09/28/2024 4:10 PM CDT Situation: follow up Background: Patient contacting PCP office. She states she is following up on triage from earlier today. Assessment: Patient was provided message below from Lise Blackwell APRN, CNP. Recommendation: Patient verbalizes understanding. No appointment times available in nurse clinic today. Patient states she will go to urgent care. * Telephone Encounter - Lise Blackwell APRN, CNP - 09/28/2024 2:39 PM CDT Recommend schedule nurse clinic visit for collection of vaginitis swab * Telephone Encounter - Dolores Betts RN - 09/28/2024 12:25 PM CDT SITUATION: 24 y.o. with vaginal symptoms BACKGROUND: Patient contacting PCP office. Patient reports yeast infection symptoms x 2 days. ASSESSMENT: Symptom Description / Location: Vaginal itching, severe Redness to the vulvar area Increased white discharge Low abdominal pain/pelvic pain Treatment / Response: cranberry with no relief. Caller denies pain. Denies fever. DENIES: bleeding, injury to genital area, pain or burning with urination, concern for STI, public lice, severe pain, rash RECOMMENDATION: Disposition: see in office today. Patient requesting provider send medication for yeast infection to pharmacy. Please advise, thank you! Care advice provided per triage guideline. Caller verbalized understanding. Discussed utilizing [employer] to: discuss if they would prefer a [employer] message or phone call response - either works per patient Reason for Disposition: Itching or rash of female genital area (e.g., labia, vagina, vulva) MODERATE-SEVERE itching (i.e., interferes with school, work, or sleep) . Protocols Used: Vulvar Oaqdhrow-Y-EN Vaginal Cgmwnqib-M-CD See care advice and disposition for Guideline. First positive answer recorded, all responses to prior questions were negative. If symptoms increase, change or if new symptoms develop, call your health care provider or call back. Recommendations were based on caller information and is not a diagnosis. Verified and reviewed all triage information with caller. * Telephone Encounter - Carrie Carey - 09/28/2024 12:24 PM CDT Symptom: Vaginal Symptoms - Not Bleeding Outcome: Transfer to cad operator queue Reason: Any pelvic pain The caller accepted this outcome. Caller Denied: * Severe pelvic pain now documented in this encounter Plan of Treatment Upcoming Encounters Date Type Department Care Team (Late st Contact Info) Description 10/01/2024 10:15 AM CDT Office Visit [facility] #[address] [place] [address] Jimi Pitt MD [address] [address] 11/25/2024 8:30 AM CDT Office Visit [facility] - [place] #[address] [place] [address] Lise Blackwell, SECURITY OFFICERS AND GUARDS, IMMIGRATION LAW SPECIALIST [address] [place] [address] documented as of this encounter Visit Diagnoses Not on filedocumented in this encounter Additional Health Concerns Assessment Noted Time PHQ-9 Depression Total Score: 0 04/23/19 25 11:12 AM [employer] documented as of this encounter Care Teams Interpreter Deaf Relationship Specialty Start Date End Date Lise Blackwell, SECURITY OFFICERS AND GUARDS, IMMIGRATION LAW SPECIALIST #[address] [place] [address] PCP - General Advanced Practice Nurse 03/22/23 Jimi Pitt MD [address] [address] Consulting Physician Urology 06/17/24 documented as of this encounter
--- OUTSIDE RECORDS SUMMARY | 2024-09-28 16:54 | XMS_ITS | Data Portability ---
Author Organization [facility], [address] [facility] ([place]) Address [address] [place] [address] Care Team Providers Care Chef Concierge Name Role Phone INDERJIT CONDON Primary Care Provider NAHEED LING Watch Supervisor Assessment Encounter Date Assessment Date Assessment LastModified [...] otherwise, when necessary or as indicated. [email or web address] Not available 03/27/2024 18:39:20 Plan of Treatment Reminders Order Date Submit Date Provider Last Modified By Organization Details Last Modified Time Details Appointments None recorded. Lab leny sp + gardnerella vaginalis + trichomonas vaginalis DNA panel, probe, vaginal fluid 2024 025 [facility], [address] [place] [address], [id number], 12:25:41 CT + NG DNA, PCR, unspecified specimen 2023 025 [facility], [address] [place] [address], [id number], 14:09:56 Referral None recorded. Procedures None recorded. Surgeries None recorded. Imaging None recorded. Medication Orders NuvaRing 0.12 mg-0.015 mg/24 hr vaginal [address] [id number], [address], [place], [place], [id number], 16:09:10 Patient TargetsNo targets recorded. Patient InstructionsNo instructions recorded. Reason for Referral None Reported. Results Created Date Observation Date Name Description Value Unit Range Abnormal Flag Note LastModifiedBy Organization Detail LastModifiedTime 03/26/1903/27/2024 maggie da sp + gardn erell a vagin celena + trich omona s vagin celena DNA panel , probe , vagin al fluid wet prep-DNA probe Not Available [facility] [address] [place] [address], [id number], 03/27/2024 12:25:41 03/26/1903/27/2024 maggie da sp + gardn erell a vagin celena + trich omona s vagin celena DNA panel , probe , vagin al fluid bacterial vaginosis NEGATI VE negati ve Not Available [facility] [address] [place] [address], [id number], 03/27/2024 12:25:41 03/26/19 25 03/27/2024 maggie da [...] thera peuti c succe ss. Not Available [facility] [address] [place] [address], [id number], 03/27/2024 12:25:41 03/26/19 25 03/27/2024 maggie da sp + gardn erell a vagin celena + trich omona s vagin celena DNA panel , probe , vagin al fluid trichomonas NEGATI VE negati ve Not Available [facility] [address] [place] [address], [id number], 03/27/2024 12:25:41 03/26/19 25 03/27/2024 maggie da sp + gardn erell a vagin celena + trich omona s vagin celena DNA panel , probe , vagin al fluid leny sp. POSITI VE negati ve abnormal Not Available [facility] [address] [place] [address], [id number], 03/27/2024 12:25:41 03/26/19 25 03/27/2024 maggie da sp + gardn erell a vagin celena + trich omona s vagin celena DNA panel , probe , vagin al fluid leny glabrata NEGATI VE negati ve Not Available [facility] [address] [place] [address], [id number], 03/27/2024 12:25:41 03/26/19 25 03/27/2024 CT + NG DNA, PCR, unspe cifie d speci men GC/CT/TV DNA probe Not Available [facility] [address] [place] [address], [id number], 03/27/2024 14:09:56 03/26/1903/27/2024 CT + NG DNA, PCR, unspe cifie d speci men GC-DNA probe NEGATI VE negati ve Not Available [facility] [address] [place] [address], [id number], 03/27/2024 14:09:56 03/26/1903/27/2024 CT + NG DNA, [...] o-leg al indic ation s. Not Available [facility] [address] [place] [address], [id number], 03/27/2024 14:09:56 03/26/1903/27/2024 CT + NG DNA, PCR, unspe cifie d speci men trichomonas NEGATI VE negati ve Not Available [facility] [address] [place] [address], [id number], 03/27/2024 14:09:56 Result Notes None recorded. Problems Name Problem SNOMED Code Status Onset Date Resolution Date Notes Provider Name and Address Organization Details Recorded Time Menstrual migraine 71689898 Active 024 Umm Gordon APRN, DNP, [employer] [address] [place] [address], [phone], [facility] 4 07:07:17 Uses vaginal hormone releasing ring 559117091 Active 024 Umm Gordon APRN, PAMELA, [employer] [address] [place] [address], [phone], [facility] 4 07:07:40 Vaginal discharge 433089840 [facility] 15:05:41 Mycosis 2530566 Active 025 [facility] 5 13:53:46 Problem Notes None recorded. Procedures Surgical History Date Name Laterality Status Provider Name and Address Organization Details Recorded Time 01/02/2023 Date of Last Pap Smear completed Umm Gordon APRN, PAMELA, [employer] [address] [place] [address], [phone], [facility] 01/08/2024 07:04:50 Imaging Results None recorded. Procedure [...] Body mass index (BMI) Body weight Systolic And Diastolic Provider Name and Address Organization Details Last Updated DateTime 03/26/2024 152.4 cm 25.4 kg/m2 96595.73 g 110/72 mm[Hg] Mine Archer [facility] 03/26/2024 15:03:36 Social History Question Answer Notes LastModified by [employer] Details LastModified Time Tobacco Smoking Status Current Every Day Smoker Mineberhane Archer [facility] 03/26/2024 15:04:51 What Is Your Level Of Caffeine Consumption? Moderate [email or web address] Information not available 03/26/2024 Which Illicit Or Recreational Drugs Have You Used? Marijuana [email or web address] Information not available 03/26/2024 E-cigarettes Or Vaporization Device? Uses Nicotine Containing Device [email or web address] Information not available 03/26/2024 What Is Your Relationship Status? Single [email or web address] Information not available 03/26/2024 Do You Use Your Seat Belt Or Car Seat Routinely? Yes [email or web address] Information not available 03/26/2024 Are You Sexually Active? Yes [email or web address] Information not available 03/26/2024 Sex: Unknown Functional Status Question Answer Note LastModified by English [employer] ion Details LastModified Time Do you use any illicit or recreational drugs? Yes [email or web address] Information not available 03/26/2024 What is your level of alcohol consumption? Occasional [email or web address] Information not available 03/26/2024 What is your exercise level? Heavy Information not available 03/26/2024 Mental Status None [...] Tdap 5 completed Umm Gordon APRN, PAMELA, [employer] [address] [place] [address], [phone], [facility] 03/27/2024 07:34:40 varicella 8 completed Umm Gordon APRN, PAMELA, [employer] [address] [place] [address], [address], [facility] 01/08/2024 07:02:06 varicella 4 completed Umm Gordon APRN, DNP, [employer] [address] [place] [address], [address], [facility] 01/08/2024 07:02:20 MMR 3 completed Umm Gordon APRN, DNP, [employer] [address] [place] [address], [address], [facility] 01/08/2024 07:02:38 MMR 4 completed Umm Gordon APRN, DNP, [employer] [address] [place] [address], [address], [facility] 01/08/2024 07:02:47 Hep B, unspecified formulation 8 completed Umm Gordon APRN, DNP, [employer] [address] [place] [address], [address], [facility] 01/08/2024 07:03:06 Hep B, unspecified formulation 3 completed Umm Gordon APRN, DNP, [employer] [address] [place] [address], [address], [facility] 01/08/2024 07:03:13 Hep B, unspecified formulation 3 completed Umm Gordon APRN, PAMELA, [employer] [address] [place] [address], [address], [facility] 01/08/2024 07:03:19 Hep B, unspecified formulation 4 completed Umm Gordon APRN, PMAELA, [employer] [address] [place] [address], [address], [facility] 01/08/2024 07:03:27 Hep A, unspecified formulation 3 completed Umm Gordon APRN, PAMELA, [employer] [address] [place] [address], [address], [facility] 03/27/2024 07:34:40 Hep A, unspecified formulation 8 completed Umm Gordon APRN, PAMELA, [employer] [address] [place] [address], [address], [facility] 01/08/2024 07:03:51 Hep A, unspecified formulation 8 completed Umm Gordon APRN, PAMELA, [employer] [address] [place] [address], [address], [facility] 01/08/2024 07:03:59 Hib-Hep B 4 completed Umm Gordon APRN, PAMELA, [employer] [address] [place] [address], [address], [facility] 03/27/2024 07:34:39 Hib-Hep B 3 completed Umm Gordon APRN, PAMELA, [employer] [address] [place] [address], [address], [facility] 03/27/2024 07:34:40 Hib-Hep B 3 completed Umm Gordon APRN, PAMELA, [employer] [address] [place] [address], [address], [facility] 03/27/2024 07:34:40 meningococcal B, recombinant 0 completed Umm Gordon APRN, PAMELA, [employer] [address] [place] [address], [address], [facility] 03/27/2024 07:34:40 HPV9 6 completed Umm Gordon APRN, PAMELA, [employer] [address] [place] [address], [address], [facility] 03/27/2024 07:34:40 IPV 4 completed Umm Gordon APRN, PAMELA, [employer] [address] [place] [address], [address], [facility] 03/27/2024 07:34:40 IPV 3 completed Umm Gordon APRN, PAMELA, [employer] [address] [place] [address], [address], [facility] 03/27/2024 07:34:40 IPV 3 completed Umm Gordon APRN, PAMELA, [employer] [address] [place] [address], [address], [facility] 03/27/2024 07:34:40 pneumococcal conjugate PCV 7 3 completed Umm Gordon APRN, PAMELA, [employer] [address] [place] [address], [address], [facility] 03/27/2024 07:34:40 pneumococcal conjugate PCV 7 3 completed Umm Gordon APRN, PAMELA, [employer] [address] [place] [address], [address], [facility] 03/27/2024 07:34:40 pneumococcal conjugate PCV 7 3 completed Umm Gordon APRN, PAMELA, [employer] [address] [place] [address], [address], [facility] 03/27/2024 07:34:40 pneumococcal conjugate PCV 7 8 completed Umm Gordon APRN, PAMELA, [employer] [address], [address], [facility] 03/27/2024 07:34:40 influenza, unspecified formulation 3 completed Umm Gordon APRN, PAMELA, [employer] [address] [place] [address], [address], [facility] 03/27/2024 07:34:40 varicella 8 completed Umm Gordon APRN, DNP, [employer] [address] [place] [address], [address], [facility] 03/27/2024 07:34:40 Influenza, split virus, trivalent, PF 4 completed Umm Gordon APRN, DNP, [employer] [address] [place] [address], [address], [facility] 03/27/2024 07:34:40 Influenza, split virus, trivalent, PF 1 completed Umm Gordon APRN, DNP, [employer] [address] [place] [address], [address], [facility] 03/27/2024 07:34:40 influenza, split (incl. purified surface antigen) 8 completed Umm Gordon APRN, PAMELA, [employer] [address] [place] [address], [address], [facility] 03/27/2024 07:34:40 HPV, quadrivalent 6 completed Umm Gordon APRN, DNP, [employer] [address] [place] [address], [address], [facility] 03/27/2024 07:34:40 Hep A, pediatric, unspecified formulation 8 completed Umm Gordon APRN, PAMELA, [employer] [address] [place] [address], [address], [facility] 03/27/2024 07:34:40 meningococcal MCV4P 5 completed Umm Gordon APRN, PAMELA, [employer] [address] [place] [address], [address], [facility] 03/27/2024 07:34:40 meningococcal MCV4P 4 completed Umm Gordon APRN, PAMELA, [employer] [address] [place] [address], [address], [facility] 03/27/2024 07:34:40 meningococcal MCV4P 0 completed Umm Gorodn APRN, PAMELA, [employer] [address] [place] [address], [address], [facility] 03/27/2024 07:34:40 DTaP 3 completed Umm Gordon APRN, PAMELA, [employer] [address] [place] [address], [address], [facility] 03/27/2024 07:34:40 DTaP 4 completed Umm Gordon APRN, DNP, [employer] [address] [place] [address], [address], [facility] 03/27/2024 07:34:40 DTaP 3 completed Umm Gordon APRN, PAMELA, [employer] [address] [place] [address], [address], [facility] 03/27/2024 07:34:40 DTaP 3 completed Umm Gordon APRN, DNP, [employer] [address] [place] [address], [address], [facility] 03/27/2024 07:34:40 meningococcal MCV4, unspecified formulation 8 completed Umm Gordon APRN, PAMELA, [employer] [address] [place] [address], [address], [facility] 03/27/2024 07:34:40 DTaP-Hep B-IPV 8 completed Umm Gordon APRN, DNP, [employer] [address] [place] [address], [address], [facility] 03/27/2024 07:34:40 Influenza, live, quadrivalent, intranasal 4 completed Umm Gordon APRN, PAMELA, [employer] [address] [place] [address], [address], [facility] 03/27/2024 07:34:40 Influenza, live, quadrivalent, intranasal 3 completed Umm Gordon APRN, PAMELA, [employer] [address] [place] [address], [address], [facility] 03/27/2024 07:34:40 Influenza, split virus, quadrivalent, PF 4 completed Umm Gordon APRN, PAMELA, [employer] [address] [place] [address], [address], [facility] 03/27/2024 07:34:40 Influenza, split virus, quadrivalent, PF 8 completed Umm Gordon APRN, PAMELA, [employer] [address] [place] [address], [address], [facility] 03/27/2024 07:34:40 Influenza, split virus, quadrivalent, PF 6 completed Umm Gordon APRN, PAMELA, [employer] [address] [place] [address], [address], [facility] 03/27/2024 07:34:40 Influenza, MDCK, trivalent, PF 5 completed Umm Gordon APRN, DNP, [employer] [address] [place] [address], [address], [facility] 03/28/2024 10:17:59 Past Encounters Encounter ID Performer Location Encounter Start Date Encounter Closed Date Diagnosis/Indication Diagnosis SNOMED-CT Code Diagnosis ICD10 Code Diagnosis Note [id number] Umm Gordon APRN, DNP, [employer] [address] [facility] ([place]) [address] [place] [address] 03/26/2024 14:43:10 03/26/2024 15:38:09 Bacterial disease screening 636077787 Z11.8 Vaccination needed 82557 15628 20482 Z23 Vaginal discharge 963651 006 N89.8 Contraception status 243 274131 Z30.44 Gynecologi c examination 45239989 Z01.419 Health Concerns Section Related Observation LastModified by Organization Detai ls LastModified Time None Recorded Concern Status LastModified by Organization Details LastModified Time None Recorded Advance Directives Directive None Recorded Payers Insurance Date Sequence Insurance Name Policy Number Policy Nesbitt Covered Member ID Nesbitt Member ID Guarantor Name 03/26/2024 1 [facility] (MEDICAID REPLACEMENT - HMO) [id number] Karlos Camacho Jyothi [id number] Loulou Roe 04/20/2024 1 [facility] (MEDICAID REPLACEMENT - HMO) [id number] Karlos Roe [id number] Loulou Roe 03/26/2024 1 MEDICAID-[place]: [facility] Karlos Roe [id number] Loulou Roe Notes Date Note Type Note [...] She went to the health department in [place], had an HSV swab, and was told [...] December 2023 through the health department in [place] and no outbreaks since. SOCIAL HISTORY:Karlos is currently living in her mom s house sleeping on the couch, but most of her belongings are at her new boyfriend s house. She mentions he is controlling, name calling, and narcissistic. Karlos is working at the [employer] in [place] and has been there one year.zander Gordon, BINDER SELECTOR, DNP, [employer] [address] [place] [address], [address], [facility] 03/28/2024 10:18:31 OBGyn Episode No OBEpisode recorded.
--- OUTSIDE RECORDS SUMMARY | 2024-09-28 16:54 | XMS_ITS | Clinical Summary ---
Author Organization [facility] Address [address] [place] [address] Phone Care Team Providers Care Service Station Attendant Name Role Phone Lise Blackwell APRN, AIRCRAFT PART ASSEMBLER Primary Care Provider + Jimi Pitt MD Unavailable Allergies No known active allergies Medications Etonogestrel-Eth inyl Estradiol 0.12-0.015 MG/24HR RING 3 Active diphenhydrAMINE HCl (BENADRYL ALLERGY PO) Take by mouth. Act yasmin ondansetron (ZOFRAN-ODT) 4 MG TABLET DISPERSIBLE Take 1 Tablet by mouth every 8 hours as needed for Nausea - 1st line. 10 Tablet 4 Active Additional Information Patient not taking.Informant: Self, Reported on 09/28/2024 polyethylene glycol (GLYCOLAX, MIRALAX) 17 g Pack Take 1 Packet by mouth daily. Dissolve in 4-8 oz of liquid. 90 Packet 4 Active Additional Information Patient not taking.Informant: Self, Reported on 09/28/2024 ondansetron (ZOFRAN) 4 MG TabletIndication s:Nausea and vomiting, unspecified vomiting type Take 1 Tablet by mouth every 8 hours as needed for Nausea - 2nd line. 15 Tablet 5 Active Additional Information Patient not taking.Reported on 09/28/2024 metFORMIN (GLUCOPHAGE) 500 MG TabletIndication s:Diabetes 1.5, managed as type 2 (HCC) Take 1 Tablet by mouth 2 times daily. 180 Tablet 5 Active tamsulosin (FLOMAX) 0.4 MG Capsule TAKE 1 CAPSULE BY MOUTH DAILY 30 Capsule Active Additional Information Patient not taking.Reported on 09/28/2024 Active Problems No known active problems Encounters Date Type Department Care Team Description 09/28/2024 [facility] [address] [place] [address] Lise Blackwell, MARIA G, AIRCRAFT PART ASSEMBLER Advice Only; Yeast Infection 09/10/2024 Results Follow-Up [facility] [address] [place] [address] Jimi Pitt MD XR ABDOMEN KUB FLAT PLATE 08/20/2024 Refill [facility] Medical [facility] - [facility] [address] [place] [address] Monika Saldivar, ARLIN Medication Refill 08/14/2024 12:42 PM CDT - 08/14/2024 11:59 PM CDT [facility] [address] [place] [address] Jimi Pitt MD Discharge Disposition: Discharged to home or Selfcare 08/14/2024 Travel 08/12/2024 Telephone [facility] [address] [place] [address] Jimi Pitt MD 07/22/2024 10:58 AM CDT - 07/22/2024 1:09 PM CDT Emergency [facility] Emergency [address] [place] [address] Charlene Clark APRN, JAMES Upper respiratory tract infection, unspecified type Discharge Disposition: Discharged to home or Selfcare 07/22/2024 Travel 07/22/2024 Nurse [facility]riage [facility] [address] [place] [phone] Lise Blackwell, MARIA G, AIRCRAFT PART ASSEMBLER Advice Only; Headache; Sore Throat; Fever 07/02/2024 12:26 PM CDT Anesthesia Event [facility] Periop [address] [place] [address] Adelso Eden APRN, DIRECTOR OF CURRICULUM 07/02/2024 12:10 PM CDT - 07/02/2024 1:40 PM CDT Surgery [facility] Periop [address] [place] [address] Jimi Pitt MD RIGHT RENAL EXTRACORPOREAL SHOCKWAVE LITHOTRIPSY 07/02/2024 10:07 AM CDT - 07/02/2024 2:56 PM CDT Hospital Encounter [facility] Preop/Pacu II [address] [place] [address] Jimi Pitt MD Discharge Disposition: Discharged to home or Selfcare 07/02/2024 Travel from Last 3 Months Immunizations Immunization Administration Dates Next Due [id number] kath MCV4, Unspecif ied Formulation 10/31/2007 DTAP [...] 11/19/2012,06/21/2003 Meningococcal B, Recombinant 09/10/2019 Meningococcal Vaccine 09/10/2019,05/25/2014,07/2003 Pneumococcal Vaccine Peds - 7 Valent ,2002,2002,05/29 [...] = 0.6 oz pur e alcohol) [facility] [employer] Util[employer] Answer Date Recorded In the past 12 months has [employer], gas, oil, or water [employer] threatened to shut off services in your home? No 10/02/2023 Social Connection and Isolation Panel Answer Date Recorded In a typical week, how many times do you talk on the phone with family, friends, or neighbors? Twice a week 10/02/2023 How often do you get together with friends or re latives? Once a week 10/02/2023 How often do you attend anglican or protestant serv ices? Never 10/02/2023 Do you belong to any clubs o r organizations such as anglican groups, unions, fraternal or athletic groups, or [...] Total Score - Questions 1-9 0 08/2024 [facility] - Occupational Stress [...] any time in the past 12 m [facility], were you homeless or living in a group home (including now)? No 10/02/2023 Sexually Active Control [...] Description 10/01/2024 10:15 AM CDT Office [facility] [address] [place] [phone] Jimi Pitt MD [address] [address] 11/25/2024 8:30 AM CDT [facility] Visit [facility] [address] [place] [phone] Lise Blackwell, DIRECTOR OF FIELD COORDINATION, AIRCRAFT PART ASSEMBLER [address] [place] [address] Health Maintenance Due Date Last Done Comments Meningococcal B Immunization (2 of 2 - Trumenba SCDM 2-dose series) 03/11/2020 09/10/2019 Pneumococcal Immunization Combined (1 of 2 - PCV) 2021 10/31/2007, 2002, 2002, Additional history exists Pap Smear 2023 SARS-COV-2 Immunization (1 - season) 2023 DTaP/Tdap/Td Immunization (7 - Td or Tdap) 05/25/2024 05/25/2014, 10/31/2007, 06/21/2003, Additional history exists Influenza Immunization (#1) 11/16/20240 11/2024, 11/25/2023, 11/25/2023, Additional history exists Respiratory Syncytial Virus (RSV) Immunization (Adult) (1 - 1-dose 75+ series) 2077 Hepatitis B Immunization Completed 008, 10/31/2007, 03/24/2003, Additional history exists Human Papillomavirus (HPV) Immunization Completed 12/14/2015, 04/22/2015 Meningococcal Immunization (ACWY) Completed 09/10/2019, 05/25/2014, 10/31/2007, Additional history exists Hepatitis C Virus (HCV) Screening Completed 07/22/2023 Diabetes: Lipid Screening Discontinued 04/23/2024, 12/2023 Diabetes: Hemoglobin A1c Discontinued 025, 04/23/2024, 07/22/2023, Additional history exists Diabetes: Nephropathy Screening Discontinued 06/18/2024, 04/23/2024, 01/15/2024, Additional history exists Diabetes: Thyroid Stimulating Hormone (TSH) Screening Discontinued 06/18/2024, 04/23/2024, 03/27/2023 Rotavirus Immunization Aged Out No lo nger eligible based on patient's age to complete this topic Procedures Procedure Name Priority Date/Time Associated Diagnosis Comments XR ABDOMEN KUB FLAT PLATE Routine 08/14/2024 12:48 PM CDT Renal stone GROUP A STREP BY PCR STAT 07/22/2024 [...] HCG () Routine 07/02/2024 10:21 AM CDT CMP (COMPREHENSIVE METABOLIC PANEL) Routine 06/18/2024 11:50 AM CDT Diabetes 1.5, managed as type 2 (HCC) HEMOGLOBIN A1C W/ ESTIMATED GLUCOSE Routine 06/18/2024 11:50 AM CDT Diabetes 1.5, managed as type 2 (HCC) THYROID SCREEN WITH REFLEX Routine 06/18/2024 11:50 AM CDT Diabetes 1.5, managed as type 2 (HCC) LIPID PANEL Routine 04/23/2024 11:58 AM PRICING SUPERVISOR Diabetes 1.5, managed as type 2 (HCC) HEPATITIS C ANTIBODY Routine 07/22/2023 11:06 AM CDT Need for hepatitis C screening test from Last 3 Months or Most Recently Relevant to Health Maintenance Results * XR ABDOMEN KUB FLAT PLATE (08/14/2024 12:48 PM CDT) Only the most recent of2 resultswithin the time period is included. Anatomical Region Laterality Modality Abdomen N/A Digital Radiogra phy 08/24/2024 2:40 PM CDT Impressions 08/24/2024 2:42 PM CDT IMPRESSION: No acute findings. Narrative 08/24/2024 2:42 PM CDT EXAM DESCRIPTION: XR ABDOMEN KUB FLAT PLATE REASON FOR STUDY: f/u right renal stone removed one month ago TECHNIQUE: Single AP radiographic view of the abdomen. COMPARISON: Abdomen radiographs 07/02/2024 FINDINGS: There is a nonobstructive bowel gas pattern. Evaluation for free intraperitoneal air is suboptimally performed on supine radiograph. No abdominal calcifications. THIS IS AN ELECTRONICALLY VERIFIED FINAL REPORT 08/24/2024 2:40 PM - Electronically signed by Asad Huber M.D. JR: Report ID: [id number] Reading Location: [id number] Procedure Note Asad Huber MD - 08/24/2024 EXAM DESCRIPTION: XR ABDOMEN KUB FLAT PLATE REASON FOR STUDY: f/u right renal stone removed one month ago TECHNIQUE: Single AP radiographic view of the abdomen. COMPARISON: Abdomen radiographs 07/02/2024 FINDINGS: There is a nonobstructive bowel gas pattern. Evaluation for free intraperitoneal air is suboptimally performed on supine radiograph. No abdominal calcifications. THIS IS AN ELECTRONICALLY VERIFIED FINAL REPORT 08/24/2024 2:40 PM - Electronically signed by Asad Huber M.D. JR: Report ID: [id number] Reading Location: [id number] IMPRESSION: No acute findings. Jimi Pitt MD [facility] ORDERABLES Final Result * GROUP A STREP BY PCR (07/22/2024 11:10 AM CDT) GROUP A STREP BY PCR NOT DETECTED NOT DETECTED 07/22/2024 11:55 AM CDT [facility] Swab STRUCTURE OF ANTERIOR PORTION OF NECK / Unknown Non-Phlebotomy Collection / Unknown 07/22/2024 11:10 AM CDT 07/22/2024 11:27 AM CDT Charlene Clark APRN, JAMES MICROBIOLOGY - GEN ERAL ORDERABLES Final Result [facility] [address] [place] [address] * RAS-COV-2 Flu RSV - (Quad PCR) (07/22/2024 11:10 AM CDT) FLU A Negative Negative, Error 07/22/2024 12:28 PM CDT [facility] FLU B Negative Negative 07/22/2024 12:28 PM CDT [facility] RESP SYNC VIRUS Negative Negative 12:28 PM CDT [facility] SARSCOV2 NOT DETECTED (Reference Range for this test is Not Detected) 07/22/2024 12:28 PM CDT [facility] Comment:This test was perfor med by a Reverse Fittings Tightener PCR Method. Swab NASOPHARYNGEAL SWAB / Unknown Non-Phlebotomy Collection / Unknown 07/22/2024 11:10 AM CDT 07/22/2024 11:20 AM CDT us Charlene Clark APRN, JAMES MICROBIOLOGY - GEN ERAL ORDERABLES Final Result [facility] [address] [place] [address] * POCT Glucose (07/02/2024 1:21 PM CDT) Only the most recent of2 resultswithin the time period is included. GLUCOSE,BEDSIDE POCT 97 70 - 99 mg/dL 07/02/2024 1:27 PM CDT [facility] Blood 07/02/2024 1:21 PM CDT 07/02/2024 1:27 PM CDT us None Provider POINT OF CARE TESTING Final Resu lt [facility] [address] [place] [address] * LMA (07/02/2024 12:58 PM CDT) Narrative Adelso Eden APRN, CRNA - 07/02/2024 12:58 PM CDT Adelso Eden APRN, CRNA 07/02/2024 12:58 PM LMA Staffing Performed: resident/DIRECTOR OF CURRICULUM Resident/DIRECTOR OF CURRICULUM: Adelso Eden APRN, CRNA Other anesthesia staff: Cristiana Mix Performed by: Adelso Eden APRN, CRNA Authorized by: Adelso Eden APRN, CRNA Airway Details Overall Difficulty: Easy Preoxygenated: Yes Ease of Mask Ventilation: Easy LMA Type: Disposable LMA Size: 3 Adequate seal established: Yes LMA placement confirmed by: bilateral breath sounds, CO2 detection Atraumatic LMA Placement us Adelso Eden APRN, CRNA ANESTHESIA ORDERAB LES Final Result * POCT Urine HCG () (07/02/2024 10:21 AM CDT) POC URINE Negative POC URINE CONTROL Sample Patternmaker Pass Urine 07/02/2024 10:2 1 AM CDT us Jimi Pitt MD POINT OF CARE TESTING (MANUAL) F inal Result * THYROID SCREEN WITH REFLEX (06/18/2024 11:50 AM CDT) TSH 1.435 0.300 - 5.000 mIU/L 06/18/2024 1:00 PM CDT [facility] Blood Venipuncture / Unknown 06/18/2024 11:50 AM CDT 06/18/2024 12:18 PM CDT Lise Blackwell DIRECTOR OF FIELD COORDINATION, AIRCRAFT PART ASSEMBLER CHEMISTRY ORDERABLES Fin al Result Performing Organization Address City/[facility]/ZIP Co de Phone Number [facility] [address] [place] [address] * HEMOGLOBIN A1C W/ ESTIMATED GLUCOSE (06/18/2024 11:50 AM CDT) HGB-A1C 5.8 4.0 - 6.0 % 06/18/2024 1:46 PM CDT [facility] Est Average Glucose 119.8 mg/dL 06/18/2024 1:46 PM CDT [facility] Blood Venipuncture / Unknown 06/18/2024 11:50 AM CDT 06/18/2024 12:19 PM CDT Narrative [facility] - 06/18/2024 1:46 PM CDT HEMOGLOBIN A1C: DIABETIC PATIENTS: WELL-CONTROLLED: 6.2 - 7.0 INTERMEDIATE WELL-CONTROLLED: 7.0 - 9.0 POORLY-CONTROLLED: >9.0 Specimens containing greater than 5% of Hemoglobin F may result in lower than expected % HbA1C results. Lise Blackwell DIRECTOR OF FIELD COORDINATION, AIRCRAFT PART ASSEMBLER CHEMISTRY ORDERABLES Fin al Result Performing Organization Address [facility] [[email or web address]] Co de Phone Number [facility] [address] [place] [address] * (ABNORMAL) CMP (COMPREHENSIVE METABOLIC PANEL) (06/18/2024 11:50 AM CDT) SODIUM 139 136 - 145 mmol/L 06/18/2024 12:52 PM CDT [facility] POTASSIUM 4.0 3.5 - 5.1 mmol/L 06/18/2024 12:52 PM CDT [facility] CHLORIDE 108(H) 98 - 107 mmol/L 06/18/2024 12:52 PM CDT [facility] CO2, VENOUS 26 22 - 30 mmol/L 06/18/2024 12:52 PM CDT [facility] ANION GAP 9.0 <18.0 mmol/L 06/18/2024 12:52 PM CDT [facility] GLUCOSE 106(H) 70 - 99 mg/dL 06/18/2024 12:52 PM CDT [facility] BUN 12 5 - 18 mg/dL 06/18/2024 12:52 PM CDT [facility] CREATININE, BLOOD 0.75 0.60 - 1.00 mg/dL 06/18/2024 12:52 PM CDT [facility] BUN/CREATININE RATIO 16 12 - 20 ratio 06/18/2024 12:52 PM CDT [facility] TOTAL PROTEIN 6.7 6.0 - 8.0 g/dL 06/18/2024 12:52 PM CDT [facility] ALBUMIN 3.9 3.5 - 5.0 g/dL 06/18/2024 12:52 PM CDT [facility] A/G RATIO 1.4 1.0 - 2.2 06/18/2024 12:52 PM CDT [facility] CALCIUM 8.5(L) 8.7 - 10.5 mg/dL 06/18/2024 12:52 PM T [facility] T BILI 0.5 0.2 - 1.2 mg/dL 06/18/2024 12:52 PM CDT [facility] SGOT (AST) 21 <43 U/L 06/18/2024 12:52 PM CDT [facility] SGPT (ALT) 13 <56 U/L 06/18/2024 12:52 PM CDT [facility] ALKALINE PHOSPHATASE 54 40 - 150 U/L 06/18/2024 12:52 PM T [facility] IS THE PATIENT REQUIRED TO BE FASTING? No 06/18/2024 12:52 PM CDT [facility] GFR, ESTIMATED >60 >=60 06/18/2024 12:52 PM CDT [facility] Comment: Creatinine Clearance is the preferred criteria for selecting drug dose adjustments in renally impaired patients. The GFR is provided as additional pertinent clinical information. GFR is reported in mL/min/1.73 sq m. Calculation based on the Chronic Kidney Disease Epidemiology Collaboration (CKD- EPI) equation refit without adjustment for race. GFR, EST. >60 >=60 025 12:52 PM CDT [facility] GFR, EST. NONAFRICAN >60 >=60 06/18/2024 12:52 PM CDT [facility] Blood Venipuncture / Unknown 06/18/2024 11:50 AM CDT 06/18/2024 12:18 PM CDT us Lise Blackwell APRN, AIRCRAFT PART ASSEMBLER CHEMISTRY ORDERABLES Fin al Result [facility] [address] [place] [address] * LIPID PANEL (04/23/2024 11:58 AM PRICING SUPERVISOR) CHOLESTEROL 162 <200 mg/dL 04/23/2024 1:47 PM PRICING SUPERVISOR [facility] TRIGLYCERIDES 91 <150 mg/dL 04/23/2024 1:47 PM PRICING SUPERVISOR [facility] HDL CHOLESTEROL 70 >40 mg/dL 1:47 PM PRICING SUPERVISOR [facility] LDL 74 <130 mg/dL 04/23/2024 1:47 PM PRICING SUPERVISOR [facility] VLDL 18 10 - 50 mg/dL 04/23/2024 1:47 PM PRICING SUPERVISOR [facility] CHOL/HDL RATIO 2.3 0.0 - 4.4 04/23/2024 1:47 PM PRICING SUPERVISOR [facility] NON-HDL CHOLESTEROL 92 <130 mg/dL 04/23/2024 1:47 PM PRICING SUPERVISOR [facility] IS THE PATIENT REQUIRED TO BE FASTING? Yes 04/23/2024 1:47 PM PRICING SUPERVISOR [facility] HAS THE PATIENT BEEN FASTING? Yes 04/23/2024 1:47 PM PRICING SUPERVISOR [facility] Blood Venipuncture / Unknown 04/23/2024 11:58 AM PRICING SUPERVISOR 04/23/2024 1:20 PM PRICING SUPERVISOR us Lise Blackwell DIRECTOR OF FIELD COORDINATION, AIRCRAFT PART ASSEMBLER CHEMISTRY ORDERABLES Fin al Result Performing Organization Address City/[facility]/ZIP Co de Phone Number [facility] [address] [place] [address] * HEPATITIS C ANTIBODY (07/22/2023 11:06 AM CDT) hepatitis C antibody 0.14 <1 S/CO 07/22/2023 9:35 PM CDT [facility] Comment: Signal/Cutoff ratio < 0.79 is Nondetected Signal/Cutoff ratio 0.80-0.99 is Grayzone Signal/Cutoff ratio > 0.99 is Detected Supplemental assays are recommended if signal/cutoff ratio is >/=1.00. Signal/cutoff ratio result >/= 5.00 is 97% predictive of positivity for recombinant immunoblot assay (RIBA) and will be reported to the [place] Department of Public Health as required. Blood Venipuncture / Unknown 07/22/2023 11:06 AM CDT 07/22/2023 11:06 AM CDT us Lise Blackwell DIRECTOR OF FIELD COORDINATION, AIRCRAFT PART ASSEMBLER CHEMISTRY ORDERABLES Fin al Result Performing Organization Address City/[facility] [[email or web address]] Co de Phone Number [facility] [address] [place] [address], from Last 3 Months or Most Recently Relevant to Health Maintenance Insurance [place] [id number] Care Teams Service Station Attendant Relationship Specialty Start Date End Date Lise Blackwell, DIRECTOR OF FIELD COORDINATION, AIRCRAFT PART ASSEMBLER [address] [place] [address] PCP - General Advanced Practice Nurse 03/22/23 Jimi Pitt MD [address] [address] Consulting Physician Urology 06/17/24
[2024-09-28 17:00] VITALS: BP 113/67; PULSE 79; RESP 16; TEMP 36.9; O2SAT 100
[2024-09-28 17:33] LABS: EDUAAPPEAR Clear; EDUABILI Negative (Negative); EDUABLOOD Negative (Negative); EDUACOLOR1 Yellow; EDUAGLUCOSE Negative (Negative); EDUAKETONE Negative (Negative); EDUALEUKO Negative (Negative); EDUANITRATE Negative (Negative); EDUAPH 7.5; EDUAPROTEIN Negative (Negative); EDUASPGRAVITY 1.020; EDUAUROBILI 0.2
--- NOTE | 2024-09-28 17:51 | ED_ITS ---
HPI - Female Genitourinary General Chief complaint: [employer] Stated complaint: yeast infection Time Seen by Provider: 09/28/24 17:00 Source: patient and RN notes reviewed Mode of arrival: ambulatory Limitations: no limitations History of Present Illness HPI Narrative: 24-year-old female presents to the [facility] complaining of vaginal irritation and discharge for approximately 2-3 days. Patient reports having thick white discharge extreme pretested to her vagina. Patient denies any concerns for STDs. Patient reports increased urinary frequency. Denies any foul smells, vaginal bleeding and pelvic pain, fevers, nausea, vomiting, dysuria, or any other symptoms. Related Data Allergies Allergy/AdvReac Type Severity Reaction Status Date / Time No Known Allergies Allergy Verified 07/26/24 11:30 Review of Systems Review of Systems: CONSTITUTIONAL: Denies fever, chills, or sweats. EYES: Denies visual changes, redness, or discharge. ENT: Denies rhinorrhea, congestion, sore throat, or otalgia. CARDIOVASCULAR: Denies chest pain, palpitations, or edema. RESPIRATORY: Denies cough or dyspnea. GASTROINTESTINAL: Denies abdominal pain, nausea, vomiting, or diarrhea. GENITOURINARY: Denies dysuria, vaginal bleeding, pelvic pain, painful intercourse, or hematuria. Positive for increased frequency, vaginal irritation, vaginal discharge. SKIN: Denies rash or itching. MUSCULOSKELETAL: Denies back pain, joint pain, or myalgia. NEUROLOGIC: Denies headache, numbness, or weakness. PSYCHIATRIC: Denies anxiety or depression. All other systems reviewed are negative, except as documented in HPI. [facility] Past Medical History Medical History Anxiety Diabetes Surgical History Surgical History History of tonsillectomy Family History Family History Mother Family history non-contributory Social History Social History Smoking status: Current every day smoker Tobacco type: e-cigarettes/vaping Substance use: current Substance use type: marijuana Living arrangements: with roommate(s) Gender identity (if verbalized by the patient): Female Spiritual care concerns: No Comments At the time of my signature, I reviewed and agree with the nursing past medical, surgical, social, and family history. There is no relevant family history pertinent to the patient complaint. Exam Narrative: GENERAL: This is a well-nourished, well-developed adult, in no apparent distress. They are non ill-appearing, nontoxic appearing. HEAD: normocephalic, atraumatic. EYES: Sclera clear/white. Conjunctiva normal. Vision is grossly intact. Extraocular movements intact EARS: External ears normal,Hearing grossly intact. NOSE: External nose normal THROAT: Mucous membranes moist, NECK: Neck supple, CARDIOVASCULAR: Regular rate and rhythm RESPIRATORY: Respiratory rate normal, respiratory effort nonlabored, no respiratory distress GASTROINTESTINAL: Abdomen soft, non-tender, nondistended. No hepato- splenomegaly, or palpable masses. No guarding or rigidity. GENITOURINARY: Vulva normal, external vagina normal, vaginal canal pink with thick cottage cheese like white/yellowish discharge. Cervix pink and edematous with thick cottage cheese like white/yellowish discharge present. SKIN: warm, Dry, intact with no suspicious lesions or rash, good texture and turgor. NEURO: awake, alert, and oriented to person, place and time. There were no obvious focal neurologic abnormalities. EXTREMITIES: No joint tenderness, effusion, or edema noted. Course Course Emergency Course: Portions of this record may have been created with voice recognition software Level of Care: Express Care Visit Vital Signs Vital signs: Vital Signs Temperature 98.4 F 09/28/24 17:00 Pulse Rate 79 09/28/24 17:00 Respiratory Rate 16 09/28/24 17:00 Blood Pressure 113/67 09/28/24 17:00 Pulse Oximetry 100 09/28/24 17:00 Oxygen Delivery Room Air 09/28/24 17:00 Temperature 98.4 F 09/28/24 17:00 Pulse Rate 79 09/28/24 17:00 Respiratory Rate 16 09/28/24 17:00 Blood Pressure 113/67 09/28/24 17:00 Pulse Oximetry 100 09/28/24 17:00 Oxygen Delivery Room Air 09/28/24 17:00 Reviewed MDM - Female Genitourinary MDM Narrative Medical decision making narrative: Symptoms consistent with vaginal yeast infection. Offered patient pelvic exam to assess patient's symptoms and she agreed. Rubina CHONG was sales program coordinator in room during exam. Genital culture, bacterial vaginosis, Coumadin, gonorrhea, Trichomonas cultures obtained and are pending. Will go ahead and treat for vaginal yeast infection based off exam findings. Will treat with fluconazole. Urine dipstick negative for any evidence of infection. Urine culture pending. Discussed physical exam findings. Advised supportive measures and signs/symptoms to go to the ER. Pt is appropriate for outpt treatment and f/u. Differential Diagnosis Differential diagnosis: Likely urinary tract infection, bacterial vaginosis, vaginitis and other (Vaginal yeast infection, STD) Lab Data Attestation: I reviewed the patient's lab results. Labs: Lab Results 09/28/24 Range/Units 17:22 POC Urine Color Yellow POC Urine Clarity Clear POC Urine pH 7.5 POC Ur Specif [place] 1.020 POC Urine Protein Negative (Negative) POC Ur Glucose (UA) Negative (Negative) POC Urine Ketones Negative (Negative) POC Urine Blood Negative (Negative) POC Urine Nitrite Negative (Negative) POC Urine Bilirubin Negative (Negative) POC Urine Urobilinogen 0.2 POC U Leukocyte Esteras Negative (Negative) Critical Care Time Critical Care Time Critical Care Time: No Discharge Plan Discharge Clinical Impression: Vaginal yeast infection Patient Disposition: Home Condition: Stable Instructions: Antibiotic Form, Yeast Infection (ED) Additional Instructions: Take fluconazole as directed. You may take a 2nd dose in 72 hours if symptoms persist. You will be notified of your vaginal swabs with a have resulted. A urine culture was sent off and if it is positive for any bacteria you will be contacted started on appropriate antibiotics. Appropriate treatment will be prescribed if anything becomes positive. Follow-up PCP in 3-5 days. If he develops any abdominal pain, fevers, body aches, nausea, vomiting, pelvic pain, vaginal bleeding, or worsening symptoms, or any other concerns please go to the ER immediately. Patient Language: Bangladeshi Prescriptions: New fluconazole 150 mg tablet 150 mg PO Q72H 3 Days Qty: 2 0RF No Action metformin 500 mg tablet 500 mg PO BID Qty: 60 0RF Follow-up/Referrals: Lise Blackwell RN [Primary Care Provider] - Time of Disposition: 17:42
[2024-09-29 19:35] LABS: Trichomonas Vag PCR NOT DETECTED (NOT DETECTE)
== END 2024-09-28 17:47 | disposition home or self-care (01) ==
DX: B37.31 Acute candidiasis of vulva and vagina (principal); Z11.3 Encounter for screening for infections with a predominantly sexual mode of transmission; E11.9 Type 2 diabetes mellitus without complications; Z79.84 Long term (current) use of oral hypoglycemic drugs; F17.290 Nicotine dependence, other tobacco product, uncomplicated; F12.90 Cannabis use, unspecified, uncomplicated
CPT/HCPCS: 81003; 87086; 87491; 87591; 87661; 87798; 99214; G0463